=== PATIENT | male | born 1940 | race Caucasian/White ===

== ENCOUNTER 2017-01-13 12:57 | Observation (INO) ==
--- NOTE | 2017-01-13 13:31 | Emergency Department Note ---
Disposition Clinical Impression: Atrial fibrillation with RVR Disposition: Admitted As Inpatient Condition: Good Time of Disposition: 14:36 General Adult HPI - General Chief complaint: ED Chest Pain Stated complaint: "new onset afib" Time Seen by Provider: 01/13/17 13:08 Source: patient, family, EMS Limitations: no limitations Nursing Notes Reviewed: Yes Vital Signs Reviewed: Yes - History of Present Illness HPI Narrative: 76-year-old male presenting to the emergency Department chief complaint new onset A. fib. Patient states last evening he started feeling a fluttering in his chest and decided to go to his primary care physician due to significant cardiac history. Patient states his primary care physician completed an EKG and saw a new onset A. fib with RVR. Patient was sent via EMS to our emergency department. Patient denies any chest pain at this time. He denies any shortness of breath, dizziness, passing out. He states the only thing that is different from his baseline is an odd fluttering in his chest. Patient does have significant cardiac history of seven stent placements with the last one being between 5-10 years ago. He is not on any anticoagulation at this time. Patient states multiple times in the room that he is a DNR/DNI. Patient has history of prostate cancer treated with radiation. Patient states this chest pain does not feel like any of his previous heart attacks. Pain Scale: 0 - Related Data Allergies Allergy/AdvReac Type Severity Reaction Status Date / Time bicalutamide [From Casodex] Allergy See Verified 05/21/15 08:38 Comments lisinopril Allergy See Verified 05/21/15 08:38 Comments promethazine [From Phenergan] AdvReac Hypotension Verified 03/21/15 10:10 All systems ED: reviewed and negative except as stated. Constitutional: Denies: fever, chills, weakness Eyes: Reports: as per HPI ENT ED: Reports: as per HPI Cardiovascular: Reports: chest pain, palpitations. Denies: dyspnea on exertion Respiratory: Denies: cough, dyspnea, wheezes Gastrointestinal: Denies: abdominal pain, nausea, vomiting Genitourinary: Reports: as per HPI Musculoskeletal: Reports: as per HPI Integumentary: Denies: rash, abrasion, lesions Neurological: Denies: weakness, numbness, paresthesias Psychiatric: Reports: as per HPI Endocrine: Reports: as per HPI Hematological/Lymphatic: Reports: as per HPI Allergic/Immunologic: Reports: as per HPI Past Medical History - Past Medical History Attestation: Yes The following information was validated with the patient. Medical history: Reports: cancer, COPD, coronary artery disease, GERD, hyperlipidemia, hypertension Surgical history: Reports: angioplasty/stent, appendectomy, prostatectomy Psychiatric history: Reports: no psych history - Social History Smoking Status: Former smoker Alcohol use: Reports: none Drug use: Reports: none Physical Exam - General Limitations: no limitations General appearance: alert, in no apparent distress - Head Head exam: atraumatic, normocephalic, normal inspection - Eye Eye exam: Present: normal appearance. Absent: scleral icterus, conjunctival injection - Chest Chest inspection: Present: normal inspection, symmetric chest wall rise. Absent : tenderness, rash - Respiratory Respiratory exam: Present: normal lung sounds bilaterally. Absent: respiratory distress, wheezes, stridor - Cardiovascular Cardiovascular exam: Present: tachycardia (Patient is irregularly irregular in A. fib with RVR. Heart rate between 85 and 110 at this time), irregular rhythm , normal heart sounds - Abdominal Exam Abdominal exam: Present: soft, Non-Tender. Absent: distention, guarding, rebound - Rectal Exam Rectal exam: Present: hemorrhoids. Absent: black stool, fecal impaction - Extremities Exam Extremities exam: Present: normal inspection, full ROM - Back Exam Back exam: Present: normal inspection - Neurological Exam Neurological exam: Present: alert, oriented X3 - Psychiatric Psychiatric exam: Present: normal affect, normal mood - Skin Skin exam: Present: warm, intact Course Course Narrative: 76-year-old male presenting to the emergency department with new onset A. fib. Patient is rate controlled at this time. We will obtain basic lab work including troponin, EKG, chest x-ray and a stool occult for blood. As long as all this is within normal limits we will start the patient on anticoagulation and have him admitted for new onset A. fib with RVR. Patient's pain free at this time. His vital signs are stable in the room. He is alert and oriented 3 and agrees with this plan. Family is at bedside. - Reevaluation(s) Reevaluation #1: The patient's labs were normal except for a positive stool culture. Patient did have an external hemorrhoid which I feel did give a false positive result. Patient denied any melena or hematochezia. He denies any history of GI bleeding. We will start him on heparin at this time as per cardiology. I spoke with the hospitalist Dr. Caballero who agrees to accept the patient at this time. Patient's alert and oriented 3 in the room with stable vital signs at this time. Patient and family agrees with this plan. Time: 14:36 Vital Signs Temperature 97.8 F 01/13/17 12:59 Pulse Rate 97 01/13/17 12:59 Respiratory Rate 16 01/13/17 12:59 Blood Pressure 129/102 01/13/17 12:59 O2 Sat by Pulse Oximetry 99 01/13/17 12:59 Temperature 97.9 F 01/13/17 16:41 Pulse Rate 87 01/13/17 16:41 Respiratory Rate 15 01/13/17 16:41 Blood Pressure 109/73 01/13/17 16:41 O2 Sat by Pulse Oximetry 96 01/13/17 16:41 Oxygen Delivery Oxygen Delivery Room Air Medical Decision Making - Lab Data Result diagrams: 01/13/17 13:25 01/13/17 13:25 Lab Results 01/13/17 01/13/17 01/13/17 Range/Units 13:25 13:25 13:25 WBC 7.8 (4.3-11.1) K/mcL RBC 4.67 (4.19-5.50) M/mcL Hgb 14.6 (12.9-16.9) g/dL Hct 44.5 (37.5-50.1) % MCV 95.3 (83.0-100.0) fL MCH 31.3 (28.0-33.3) pg MCHC 32.8 (31.6-35.5) g/dL RDW 13.2 (11.5-14.5) % Plt Count 222 (140-400) K/mcL MPV 8.7 L (9.4-12.4) fL Immature Gran % 0.4 (0-4) % Seg Neutrophils % 61.9 % Lymphocytes % 30.3 % Monocytes % 6.0 % Eosinophils % 0.9 % Basophils % 0.5 % Neutrophils # 4.8 (1.6-8.9) K/mcL Lymphocytes # 2.4 (0.6-4.6) K/mcL Monocytes # 0.5 (0.0-1.3) K/mcL Eosinophils # 0.1 (0.0-0.6) K/mcL Basophils # 0.0 (0.0-0.2) K/mcL PT 12.4 H (9.4-12.1) Seconds INR 1.1 APTT 25.9 L (26.0-36.0) Seconds Sodium 139 (136-145) mEq/L Potassium 4.1 (3.5-4.5) mEq/L Chloride 105 (98-109) mEq/L Carbon Dioxide 30 H (19-29) mEq/L BUN 17 (8-26) mg/dL Creatinine 1.16 (0.72-1.25) mg/dL Est GFR ( Amer) > 60 (> 60) Est GFR (Non-Af Amer) > 60 (> 60) BUN/Creatinine Ratio 15 (6-26) Glucose 104 H (70-99) mg/dL Calculated Osmolality 290 (280-300) Calcium 9.3 (8.6-10.8) mg/dL Troponin I (0-0.03) ng/mL TSH 0.347 L (0.350-4.840) mcIU/mL Stool Occult Blood (Negative) 01/13/17 01/13/17 Range/Units 13:25 14:14 WBC (4.3-11.1) K/mcL RBC (4.19-5.50) M/mcL Hgb (12.9-16.9) g/dL Hct (37.5-50.1) % MCV (83.0-100.0) fL MCH (28.0-33.3) pg MCHC (31.6-35.5) g/dL RDW (11.5-14.5) % Plt Count (140-400) K/mcL MPV (9.4-12.4) fL Immature Gran % (0-4) % Seg Neutrophils % % Lymphocytes % % Monocytes % % Eosinophils % % Basophils % % Neutrophils # (1.6-8.9) K/mcL Lymphocytes # (0.6-4.6) K/mcL Monocytes # (0.0-1.3) K/mcL Eosinophils # (0.0-0.6) K/mcL Basophils # (0.0-0.2) K/mcL PT (9.4-12.1) Seconds INR APTT (26.0-36.0) Seconds Sodium (136-145) mEq/L Potassium (3.5-4.5) mEq/L Chloride (98-109) mEq/L Carbon Dioxide (19-29) mEq/L BUN (8-26) mg/dL Creatinine (0.72-1.25) mg/dL Est GFR ( Amer) (> 60) Est GFR (Non-Af Amer) (> 60) BUN/Creatinine Ratio (6-26) Glucose (70-99) mg/dL Calculated Osmolality (280-300) Calcium (8.6-10.8) mg/dL Troponin I 0.03 (0-0.03) ng/mL TSH (0.350-4.840) mcIU/mL Stool Occult Blood Positive A (Negative) - EKG Data EKG #1 EKG attestation: Yes I reviewed and interpreted this EKG. EKG results narrative: A. fib with RVR. Rate of 100 bpm. Left axis deviation. QRS 94, QTc 389. Nonspecific T-wave changes in V2, V3, V5 V6 when compared to previous EKG completed on 04/04/2011 new-onset A. fib along with new onset of LVH and nonspecific T-wave abnormalities. Attestation Statement - Attestation Attestation: I, Francis Shah, examined this patient and my medical decision-making was reviewed with the [employer] MANAGER/PA/Advanced Practice Nurse/Resident Physician. I agree with the documented findings, disposition and treatment plan as described except to the extent set forth below. 76-year-old male presents emergency Department with concerns of new onset atrial fibrillation. Patient's states that he has had multiple episodes of chest pain over the last 24 hours which improved with nitroglycerin. This feels similar to his previous chest tightness that was associated with his myocardial infarction. Patient has multiple stents in place. Patient main concern is the new onset atrial fibrillation with the risk factors for stroke. He refuses further intervention with his heart . Patient denies recent trauma, syncope, changes in his medications. Patient took 381 mg aspirin yesterday when he had acute onset pain. Patient is currently in nature fibrillation with a rapid ventricular rate although his rate generally only goes to about 1:15. Patient does not currently have chest pain or lightheadedness. Rectal exam performed by the resident shows a external hemorrhoid and the stool had a "red jelly" appearance to it. However, patient denies hematochezia or melena. Patient will be started on heparin as he is not anemic and has not had diarrhea. The hospitalist was informed regarding his case and presentation. Patient will be admitted to the hospital for further evaluation.
[2017-01-13 13:32] LABS: Basophils % 0.5 %; Eosinophils # 0.1 K/mcL (0.0-0.6); Eosinophils % 0.9 %; Hematocrit 44.5 % (37.5-50.1); Hemoglobin 14.6 g/dL (12.9-16.9); Immature Granulocytes % 0.4 % (0-4); Lymphocytes # 2.4 K/mcL (0.6-4.6); Lymphocytes % 30.3 %; Mean Corpuscular HGB Conc 32.8 g/dL (31.6-35.5); Mean Corpuscular Hemoglobin 31.3 pg (28.0-33.3); Mean Corpuscular Volume 95.3 fL (83.0-100.0); Mean Platelet Volume 8.7 fL (9.4-12.4); Monocytes # 0.5 K/mcL (0.0-1.3); Neutrophils # 4.8 K/mcL (1.6-8.9); Platelet Count 222 K/mcL (140-400); Red Blood Count 4.67 M/mcL (4.19-5.50); Red Cell Distribution Width 13.2 % (11.5-14.5); Segmented Neutrophils % 61.9 %
[2017-01-13 13:38] LABS: INR 1.1; Prothrombin Time 12.4 Seconds (9.4-12.1)
[2017-01-13 13:41] LABS: Activated Partial Thrombo Time 25.9 Seconds (26.0-36.0)
[2017-01-13 13:44] LABS: BUN/Creatinine Ratio 15 (6-26); Blood Urea Nitrogen 17 mg/dL (8-26); Calcium 9.3 mg/dL (8.6-10.8); Carbon Dioxide 30 mEq/L (19-29); Chloride 105 mEq/L (98-109); Glucose 104 mg/dL (70-99); Osmolality,Calculated 290 (280-300); Potassium 4.1 mEq/L (3.5-4.5); Sodium 139 mEq/L (136-145); eGFR For African Americans > 60 (> 60); eGFR For Non-African Americans > 60 (> 60)
[2017-01-13 14:06] LABS: Thyroid Stimulating Hormone 0.347 mcIU/mL (0.350-4.840)
[2017-01-13] MEDS ORDERED: *HR* Heparin 5,000 UNIT/ML VIAL IVP ONE (14:30)
[2017-01-13] MEDS ORDERED: *HR* Heparin 5,000 UNIT/ML VIAL IVP PRN ×2 (14:30)
[2017-01-13] MEDS: Heparin 25,000 UNIT/500 ML D5W 25,000 UNIT/500 ML MLS IVC SCH (15:59)
[2017-01-13] MEDS ORDERED: Naloxone 0.4 MG/ML INJ IVP PRN (16:18)
[2017-01-13] MEDS ORDERED: Nitroglycerin 0.4 MG TAB.SUBL SL SCH (16:30)
--- NOTE | 2017-01-13 17:00 | Internal Med History&Physical ---
Date of Encounter: 01/13/17 Time of Encounter: 16:58 Assessment and Plan (1) Atrial fibrillation with RVR Current visit: Yes Status: Acute New onset of A-fib, currently rate controlled while resting. He reports tacycardia with activity, also accompanied with CP and dyspnea. H/O extensive CAD requiring 7 stents serial troponins echocardiogram consult cardio- days team to call continuous tele CBC, CMP in morning (2) Chest pain Current visit: Yes Status: Acute Intermittent exertional CP/tightness. Extensive cardiac history, requiring 7 stents. Continues to endorse CP with activity at this time, initial trop 0.03 Serial troponins continuous tele and SPO2 monitoring Qualifiers: Chest pain type: unspecified Qualified Code(s): R07.9 - Chest pain, unspecified (3) HTN (hypertension) Current visit: Yes Status: Acute H/O, HTN, BP controlled during this visit, continue Imdur at home dose Qualifiers: Hypertension type: essential hypertension Qualified Code(s): I10 - Essential (primary) hypertension (4) DVT prophylaxis Current visit: Yes Status: Acute On heparin gtt, start SC prophylaxis when heparin gtt discontinued. Internal Medicine - H&P: HPI Chief complaint: New A-fib Admitted From: Home Plans for Post Hospital Care: Home History of present illness: Mr. Roth is a 76 year old male with a PMH of CA, COPD, CAD, 7 coronary stents , GERD, HLD, and HTN. Presents to [facility] today with chest discomfort and was found to be in A. fib. He reports that yesterday he began feeling a fluttering in his chest, dyspnea and left sided chest discomfort which worsened with activity, and subsided with rest. These symptoms continue with activity. Denies any SOB, dizziness, syncope, fevers, or chills. He is not on any anticoagulation. Troponin -0.03. He is currently rate controlled and hemodynamically stable. Being admitted further workup and evaluation. Past Med Surg Social Fam HX - Past Medical History Medical history: cancer, COPD, coronary artery disease, GERD, hyperlipidemia, hypertension Psychiatric history: no psych history - Past Surgical History Surgical History: angioplasty/stent, appendectomy, prostatectomy - Social History Smoking Status: Former smoker Alcohol use: none Drug use: none - Additional Family History Additional family history: non-contributory Internal Medicine - H&P: Meds Ipratropium [place] 1 spr NS DAILY 01/13/17 [History] Isosorbide MONOnitrate (24 HR) [Imdur] 30 mg PO DAILY 01/13/17 [History] Nitroglycerin [Nitrostat] 0.4 mg SL Q5M 01/13/17 [History] Pantoprazole Sodium [Protonix] 40 mg PO DAILY 01/13/17 [History] 3 Allergy/AdvReac Type Severity Reaction Status Date / Time bicalutamide [From Casodex] Allergy See Verified 05/21/15 08:38 Comments lisinopril Allergy See Verified 05/21/15 08:38 Comments promethazine [From Phenergan] AdvReac Hypotension Verified 03/21/15 10:10 All Systems PM: A 10-system review of systems was performed and is negative for pertinent findings except as documented above in the HPI. - Constitutional Constitutional: fatigue, no chills, no fever(s), no night sweats, no weakness, no weight gain, no weight loss - EENT Eyes: no change in vision, no discharge, no pain, no photophobia Ears: no ear discharge, no ear pain, no tinnitus Nose, mouth and throat: no dysphagia, no nasal discharge, no neck pain, no sore throat - Cardiovascular Cardiovascular ROS IM: chest pain, dyspnea on exertion, irregular heart rhythm, palpitations, no diaphoresis, no dyspnea, no edema, no lightheadedness, no syncope - Respiratory Respiratory: dyspnea on exertion, no cough, no dyspnea, no wheezing, no excessive phlegm production - Gastrointestinal Gastrointestinal: no abdominal pain, no diarrhea, no hematemesis, no hematochezia, no melena, no nausea, no vomiting - Musculoskeletal Musculoskeletal ROS IM: no numbness, no tingling - Integumentary Integumentary IM: no rash, no unusual bruising - Neurological Neurological ROS: no confusion, no convulsions, no focal weakness, no numbness, no tingling, no tremor(s) - Hematologic/Lymphatic Hematologic/Lymphatic: no easy bruising - Constitutional Vitals: Temp Pulse Resp BP Pulse Ox 97.9 F 87 15 109/73 96 01/13/17 16:41 01/13/17 16:41 01/13/17 16:41 01/13/17 16:41 01/13/17 16:41 General appearance: Present: cooperative, A&O X 3, no acute distress, answers questions appropriately - Head Head exam: Present: atraumatic, normocephalic - Eye Eye exam: Present: EOMI, PERRL, conjuntiva pink, sclera anicteric Pupils: Present: PERRL - Neck Neck exam general surgery: Present: supple, trachea midline. Absent: lymphadenopathy - Respiratory Respiratory exam: Present: CTAB. Absent: accessory muscle use, rales, rhonchi, wheezes - Cardiovascular Cardiovascular exam: Present: irregular rhythm, RRR, +S1, +S2. Absent: diastolic murmur, gallop, rubs, systolic murmur - GI/Abdominal GI/Abdominal exam: Present: normal bowel sounds, soft, no peritoneal signs. Absent: distended, tenderness - Extremities Exam Extremities exam: Present: warm, radial pulses palpable and symmetrical. Absent : calf tenderness, cyanotic, pedal edema - Neurological Exam Neurological exam: Present: CN II-XII intact, oriented X3, no focal deficits. Absent: pronater drift, facial droop, speech deficit - Skin Skin exam: Present: dry, intact Internal Med - H&P Results - Labs CBC & Chem 7: 01/13/17 13:25 01/13/17 13:25 - EKG Data -: EKG Interpreted by Myself - EKG Data EKG comments: 01/13/17 17:02 a-fib 01/13/17 17:03 - Diagnostic Studies Chest x-ray Status: image reviewed by me Additional comments: no acute pulmonary process
[2017-01-13 21:17] LABS: Activated Partial Thrombo Time 121.2 Seconds (26.0-36.0)
[2017-01-13 21:41] LABS: Heparin anti-factor XA UFH 0.74 IU/mL (0.30-0.70)
[2017-01-14 05:15] LABS: Basophils # 0.1 K/mcL (0.0-0.2); Basophils % 0.9 %; Eosinophils # 0.1 K/mcL (0.0-0.6); Eosinophils % 1.9 %; Hemoglobin 14.2 g/dL (12.9-16.9); Immature Granulocytes % 0.4 % (0-4); Lymphocytes # 2.4 K/mcL (0.6-4.6); Lymphocytes % 41.4 %; Mean Corpuscular Hemoglobin 31.1 pg (28.0-33.3); Mean Corpuscular Volume 94.3 fL (83.0-100.0); Mean Platelet Volume 9.2 fL (9.4-12.4); Monocytes # 0.4 K/mcL (0.0-1.3); Monocytes % 7.4 %; Neutrophils # 2.7 K/mcL (1.6-8.9); Platelet Count 192 K/mcL (140-400); Red Blood Count 4.56 M/mcL (4.19-5.50); Red Cell Distribution Width 13.4 % (11.5-14.5)
[2017-01-14 05:34] LABS: Alanine Aminotransferase 16 Units/L (0-55); Albumin/Globulin Ratio 1.2 (1.1-2.2); Alkaline Phosphatase 58 Units/L (38-126); Aspartate Amino Transferase 20 Units/L (5-34); BUN/Creatinine Ratio 15 (6-26); Bilirubin,Total 0.5 mg/dL (0.2-1.2); Blood Urea Nitrogen 14 mg/dL (8-26); Calcium 9.1 mg/dL (8.6-10.8); Carbon Dioxide 26 mEq/L (19-29); Chloride 109 mEq/L (98-109); Globulin 2.6 g/dL (2.4-3.5); Glucose 96 mg/dL (70-99); Osmolality,Calculated 292 (280-300); Potassium 3.8 mEq/L (3.5-4.5); Sodium 141 mEq/L (136-145); Total Protein 5.6 g/dL (6.0-8.3); eGFR For African Americans > 60 (> 60); eGFR For Non-African Americans > 60 (> 60)
[2017-01-14] MEDS ORDERED: Isosorbide MONOnitrate (24 HR) 30 MG TAB.ER.24H PO SCH (09:00)
[2017-01-14] MEDS ORDERED: (Ipratropium Bromide [Ipratropium Bromide] 1 SPR) NS SCH (09:00)
--- NOTE | 2017-01-14 09:14 | Cardiology Consult Note ---
Date of Encounter: 01/14/17 Time of Encounter: 09:04 Assessment and Plan (1) Atrial fibrillation with RVR Current Visit: Yes Status: Acute New A-Fib, EKG on admission HR 100. HR currently 90s-low 100s at bedside. K 3.8, Mag 2.3, TSH 0.347--recommend addressing per primary team. Recommend starting Lopressor 25mg BID. Will start now. [id number] score is 4 (Age, HTN, CAD). Currently on heparin gtt. Discussed snf anticoagulation--Coumadin vs NOACs. Pt refuses Coumadin, states he will need to think about NOACs before agreeing. R/B/A discussed. Stool occult blood positive. H&H stable. Per pt, since having radiation for prostate cancer in the , he has had to take an enema every other day which sometimes causes some irritation/blood to be noted and has hx of hemorrhoids. Will discuss with Dr. Perez, but does not seem to be contraindication for anticoagulation. Check echo to evaluate structure and function. Sleep study 10/2015 no evidence of QUIANA. (2) Chest pain Current Visit: Yes Status: Acute Chest pain intermittent since Thursday morning. Midsternal chest tightness with radiation to back. Concerning for unstable angina. Symptoms worse with exertion, improve with rest and nitro. Troponins 0.03, 0.06x2 in setting of A-Fib RVR, nondiagnostic for ACS. EKG with lateral ischemia. Per pt, symptoms similar to prior anginal equivalent. Also per pt, he thought he had an FL earlier this year, went to PCP office and EKG was noted to have changes, but he declined admission. Echo to evaluate structure and function. Recommend ischemic evaluation given concerning symptoms and EKG changes. Discussed stress test/LHC. Pt would like to think about his options, but would prefer stress test is able. Pt is DNR-CC and he refuses to revoke his code status if LHC were to be recommended. Will await echo results/EF to determine if stress test or LHC is recommended. Qualifiers: Chest pain type: unspecified Qualified Code(s): R07.9 - Chest pain, unspecified (3) CAD (coronary artery disease) Current Visit: Yes Status: Acute Hx of CAD and multiple PCI (per pt 7). Last LHC was 02/2012 when pt received PCI to prox-mid first obtuse marginal artery. Start ASA, Statin, BB. Plan as above. Qualifiers: Coronary Disease-Associated Artery/Lesion type: [place] artery [place] vs. transplanted heart: [place] heart Associated angina: with unstable angina Qualified Code(s): I25.110 - Atherosclerotic heart disease of [place] coronary artery with unstable angina pectoris (4) Elevated troponin Current Visit: Yes Status: Acute Borderline--0.03, then 0.06 x 2 in setting of A-Fib with RVR. Nondiagnostic for ACS. Cardiac rehab currently not warranted. Plan as above. Discussion w patient/family: The assessment and plan as outlined above was discussed with the patient and/or family members who expressed understanding and agreement. All questions were answered. Thank you for involving us in the care of your patient. Please call with any questions. I will discuss all the above with Dr. Perez and make changes as necessary. History of Present Illness Consult date: 01/14/17 Requesting physician: Saleem Chery Consult reason: A-Fib, chest pain, elevated troponin Chief complaint: chest pain History of present illness: Mr. Roth is a 76 year old male with a PMH of prostate CA s/p radiation, COPD, CAD s/p PCI, GERD, HLD, and HTN. Pt presented to [facility] yesterday with chest discomfort described as midsternal chest tightness radiating to his back. He woke up with the pain at 6AM on Thursday. The pain was worse with exertion, improved with nitro. He took multiple nitro, ASA and Imdur. The pain recurred on Thursday, prompting evaluation by his PCP, who found he was in A-Fib with RVR and was transported to [facility] He reports symptoms were similar to prior anginal equivalent. He reports dyspnea on exertion. No prior hx of A-Fib. Troponins 0.03 , 0.06, 0.06. Cardiology consulted for further recommendations. Prior CV testing: [facility] 03/07/11: Severe 2 vessel CAD. Patent pre-existing stent and 50% stenosis in proximal to mid LAD. Patent pre-existing stent in the mid to distal LAD. Ostial 50 to 60% stenosis in the proximal first diagonal artery. 90 to 95% ISR of pre-existing stent in prox-mid second obtuse marginal artery. EF 55-60%. Staged PCI recommended. [facility] 03/07/11: Successful stenting of 90% stenosis in prox-mid first obtuse marginal artery. Past Med Surg Social Fam HX - Past Medical History Medical history: cancer, COPD, coronary artery disease, GERD, hyperlipidemia, hypertension Psychiatric history: no psych history - Past Surgical History Surgical History: angioplasty/stent, appendectomy, prostatectomy - Social History Smoking Status: Former smoker Alcohol use: none Drug use: none Medications and Allergies Ipratropium [place] 1 spr NS DAILY 01/13/17 [History] Isosorbide MONOnitrate (24 HR) [Imdur] 30 mg PO DAILY 01/13/17 [History] Nitroglycerin [Nitrostat] 0.4 mg SL Q5M 01/13/17 [History] Pantoprazole Sodium [Protonix] 40 mg PO DAILY 01/13/17 [History] 3 Allergy/AdvReac Type Severity Reaction Status Date / Time bicalutamide [From Casodex] Allergy See Verified 05/21/15 08:38 Comments lisinopril Allergy See Verified 05/21/15 08:38 Comments promethazine [From Phenergan] AdvReac Hypotension Verified 03/21/15 10:10 All Systems Review: A 10-system review of systems was performed and is negative for pertinent findings except as documented above in the HPI. - Cardiovascular Cardiovascular: as per HPI, chest pain at rest, chest pain with exertion, dyspnea on exertion, radiating jaw, neck or arm pain - Respiratory Respiratory: dyspnea Physical Examination Vital Signs, Last 4 Hours Temp Pulse Resp BP Pulse Ox 01/14/17 07:43 97.8 F 91 16 115/86 98 Vital Signs Temp Pulse Resp BP Pulse Ox 01/14/17 07:43 97.8 F 91 16 115/86 98 01/14/17 04:24 97.9 F 72 20 121/72 97 01/14/17 00:35 97.6 F 81 20 101/62 92 01/13/17 16:41 97.9 F 87 15 109/73 96 01/13/17 16:19 98.4 F 104 20 127/84 98 01/13/17 16:00 16 129/84 01/13/17 14:30 114 16 178/94 95 01/13/17 12:59 97.8 F 97 16 129/102 99 Intake and Output 01/13/17 01/14/17 01/14/17 23:59 07:59 15:59 Intake Total 365 / 365 120 / 120 360 / 360 Output Total 0 / 0 Balance 365 / 365 120 / 120 360 / 360 Intake: IV Fluids 125 / 125 Heparin 25,000 UNIT/500 ML D5W 125 / 125 25,000 unit In 500 ml @ 14 UNIT /KG/HR 23.496 mls/hr IVC . [id number] [facility] Rx#:[id number] Oral 240 / 240 120 / 120 360 / 360 Output: Urine 0 / 0 Other: Meal Breakfast Percent of Meal Consumed 100% # Voids 1 1 Weight 88.7 kg 88.7 kg Blood Glucose* 127 Patient Weight 01/14/17 23:59 Weight 88.7 kg General: Conversant, No Apparent Distress HEENT: Atraumatic, Normocephaly, Mucus Membranes Moist Neck: No JVD, Normal carotid pulses Cardiac: Other (irregularly irregular) Lungs: Normal Breath Sounds, No Wheeze, Rales, Rhonchi Neuro: Alert and responsive, No focal deficits noted Abdomen: Soft, Non-Tender Skin: No rashes noted on visualized skin Musculoskeletal: No Chest Wall Tenderness Extremities: No Clubbing, No Cyanosis, No Edema, Normal Pulses Results 01/14/17 04:12 01/14/17 04:12 Lab Results 01/13/17 01/13/17 01/13/17 17:04 20:36 20:36 WBC Hgb Hct Plt Count APTT 121.2 H* D Sodium Potassium Chloride Carbon Dioxide BUN Creatinine Glucose Calcium Magnesium 2.3 Total Bilirubin AST ALT Alkaline Phosphatase Troponin I 0.06 H* 01/14/17 01/14/17 01/14/17 00:42 04:12 04:12 WBC 5.7 Hgb 14.2 Hct 43.0 Plt Count 192 APTT Sodium 141 Potassium 3.8 Chloride 109 Carbon Dioxide 26 BUN 14 Creatinine 0.95 Glucose 96 Calcium 9.1 Magnesium Total Bilirubin 0.5 AST 20 ALT 16 Alkaline Phosphatase 58 Troponin I 0.06 H* 01/14/17 04:12 WBC Hgb Hct Plt Count APTT 69.3 H Sodium Potassium Chloride Carbon Dioxide BUN Creatinine Glucose Calcium Magnesium Total Bilirubin AST ALT Alkaline Phosphatase Troponin I Short CBC 01/14/17 01/13/17 Range/Units 04:12 13:25 WBC 5.7 7.8 (4.3-11.1) K/mcL Hgb 14.2 14.6 (12.9-16.9) g/dL Hct 43.0 44.5 (37.5-50.1) % Plt Count 192 222 (140-400) K/mcL Neutrophils # 2.7 4.8 (1.6-8.9) K/mcL BMP 01/14/17 01/13/17 Range/Units 04:12 13:25 Sodium 141 139 (136-145) mEq/L Potassium 3.8 4.1 (3.5-4.5) mEq/L Chloride 109 105 (98-109) mEq/L Carbon Dioxide 26 30 H (19-29) mEq/L BUN 14 17 (8-26) mg/dL Creatinine 0.95 1.16 (0.72-1.25) mg/dL Glucose 96 104 H (70-99) mg/dL Calcium 9.1 9.3 (8.6-10.8) mg/dL Cardiac Enzymes 01/14/17 01/13/17 01/13/17 Range/Units 00:42 20:36 13:25 Troponin I 0.06 H* 0.06 H* 0.03 (0-0.03) ng/mL Liver Function 01/14/17 Range/Units 04:12 Total Bilirubin 0.5 (0.2-1.2) mg/dL AST 20 (5-34) Units/L ALT 16 (0-55) Units/L Alkaline Phosphatase 58 (38-126) Units/L Albumin 3.0 L (3.5-5.0) g/dL Impressions Chest X-Ray 01/13/17 13:12 IMPRESSION: No acute process. D/ / Clifford Eaton MD / Clifford Eaton MD Interpreting Provider: Clifford Eaton MD Active Medications Heparin Sodium (Porcine) (Heparin) 5,900 unit 70 unit/kg (5900 unit) IVP Q6HR PRN PRN Reason: SEE COMMENTS Stop: 07/15/17 14:31 Heparin Sodium (Porcine) (Heparin) 2,900 unit 35 unit/kg (2900 unit) IVP Q6H PRN PRN Reason: SEE COMMENTS Stop: 07/15/17 14:31 Heparin Sodium/Dextrose (Heparin 25,000 Unit/500 Ml D5w) 25,000 unit in 500 mls @ 23.496 mls/hr IVC .[id number] [place]; 14 UNIT/KG/HR PRN Reason: Protocol Stop: 07/15/17 14:31 Last Titration: 01/13/17 21:17 Dose: 10.96 unit/kg/hr, 18.4 mls/hr Isosorbide Mononitrate (Imdur) 30 mg PO DAILY [facility] Stop: 07/16/17 09:01 Last Admin: 01/14/17 09:05 Dose: 30 mg Naloxone HCl (Narcan) 0.4 mg IVP Q2MIN PRN PRN Reason: Opioid Reversal Stop: 07/15/17 16:19 Nitroglycerin (Nitroglycerin) 0.4 mg SL Q5M [facility] Stop: 07/15/17 16:31 Omeprazole (Prilosec) 20 mg PO DAILY [facility] Stop: 07/16/17 09:01 Pharmacy Profile Note (Patient Taking Own Medication) 1 each NS DAILY [facility] Stop: 07/16/17 09:01 - Imaging and Cardiology Chest Xray: report reviewed Cardiac cath: report reviewed - EKG Interpretation EKG results cardiology: personally reviewed (A-Fib rate 100, lateral ischemia), other (12 hr tele AVG HR 85, A-Fib) Consult Discharge Plan - Plan Referrals: Christiano Shah DO [Primary Care Provider] - 01/22/17 11:30 am
[2017-01-14] MEDS ORDERED: Aspirin 81 MG TAB.CHEW PO SCH (09:30)
[2017-01-14] MEDS ORDERED: Pantoprazole 40 MG VIAL IVP SCH (09:30)
[2017-01-14] MEDS ORDERED: Nitroglycerin 0.4 MG TAB.SUBL SL PRN (09:37)
[2017-01-14 10:51] LABS: Triiodothyronine (T3) Free 2.5 pg/mL (1.71-3.71)
--- NOTE | 2017-01-14 10:55 | Internal Med Progress Note ---
<Fabio Barnard - Last Filed: 01/14/17 11:22> Date of Encounter: 01/14/17 Time of Encounter: 10:15 - Assessment and plan (1) Atrial fibrillation with RVR Current Visit: Yes Status: Acute Assessment and plan: New onset atrial fibrillation with RVR. Rate is currently controlled with metoprolol. Reported tachycardia with activity. Patient did have exertional chest pain and dyspnea prior to admission to the hospital. He does have extensive history of CAD recurrent 2010. No known follow-up of heart disease since then. EKG was suggestive of lateral ischemia and series of 3 troponins showed mildly elevated, but stable troponins. Cardiology has been consulted to assist in management of atrial fibrillation with possibility of left heart cath Patient has CHADVASc of 3-4 will likely need long-term anticoagulation Echocardiogram pending Continue on telemetry (2) CAD (coronary artery disease) Current Visit: Yes Status: Acute Assessment and plan: Patient has extensive history of coronary artery disease having had 7 stents placed in 2010 which was the time of his last left heart catheterization. Patient does report having some increased exertional chest pain and dyspnea prior to presentation to the hospital. Patient is continued on heparin drip due to new onset atrial fibrillation Continue home Imdur Continue sublingual nitroglycerin as needed for chest discomfort Continue metoprolol Continue aspirin Qualifiers: Coronary Disease-Associated Artery/Lesion type: [place] artery [place] vs. transplanted heart: [place] heart Associated angina: with unstable angina Qualified Code(s): I25.110 - Atherosclerotic heart disease of [place] coronary artery with unstable angina pectoris (3) Elevated troponin Current Visit: Yes Status: Acute Assessment and plan: Mildly elevated troponin seen at 0.03, 0.06, and 0.06 after that. Elevation troponins could be due to A. fib with RVR or represent cardiac ischemia given patient's extensive history of CAD with 7 stents. (4) Low TSH level Current Visit: Yes Status: Acute Assessment and plan: Patient found to have low TSH of 0.347. Hyperthyroidism could potentially contribute to atrial fibrillation, though could be due to sick euthyroid. Will obtain free T3 and T4 (5) HTN (hypertension) Current Visit: Yes Status: Acute Assessment and plan: Patient has history of hypertension was previously on lisinopril. For the most part blood pressures have been controlled while here, there is 1 recording of 178/94, this is possibly an aberrant reading. We will continue to monitor closely Qualifiers: Hypertension type: essential hypertension Qualified Code(s): I10 - Essential (primary) hypertension - Subjective Interval history: Patient reports feeling somewhat improved today. He states he is able to walk about 20-30 feet before having some return of symptoms, but reports this is an improvement from previous. Patient denies having other problems/complaints today. - Constitutional Vitals: Temp Pulse Resp BP Pulse Ox 97.8 F 91 16 115/86 98 01/14/17 07:43 01/14/17 07:43 01/14/17 07:43 01/14/17 07:43 01/14/17 07:43 General appearance: Present: cooperative, A&O X 3, no acute distress, answers questions appropriately Exam: General: Cooperative, pleasant, no acute distress, alert and oriented 3, answers questions appropriately HEENT: Normocephalic, atraumatic, neck supple, trachea midline, Conjunctiva pink , sclera anicteric, no carotid bruits heard on auscultation Respiratory: No accessory muscle usage, clear to auscultation bilaterally, no wheezes/rhonchi/rales appreciated Cardiovascular: Irregularly irregular rhythm, S1 and S2 present, no murmurs/rubs /gallops/clicks appreciated GI/abdominal: Nondistended, nontender, soft, normal bowel sounds, no peritoneal signs Extremities: No calf tenderness, no pedal edema appreciated, warm, lower extremity pulses palpable and symmetrical Neurological: Alert and oriented 3, no facial droop, no focal deficits Internal Medicine: Result - Labs CBC & Chem 7: 01/14/17 04:12 01/14/17 04:12 Labs: Short CBC 01/14/17 Range/Units 04:12 WBC 5.7 (4.3-11.1) K/mcL Hgb 14.2 (12.9-16.9) g/dL Hct 43.0 (37.5-50.1) % Plt Count 192 (140-400) K/mcL Neutrophils # 2.7 (1.6-8.9) K/mcL BMP 01/14/17 04:12 Sodium 141 Potassium 3.8 Chloride 109 Carbon Dioxide 26 BUN 14 Creatinine 0.95 Glucose 96 Calcium 9.1 Cardiac Enzymes 01/13/17 01/14/17 Range/Units 20:36 00:42 Troponin I 0.06 H* 0.06 H* (0-0.03) ng/mL Liver Function 01/14/17 Range/Units 04:12 Total Bilirubin 0.5 (0.2-1.2) mg/dL AST 20 (5-34) Units/L ALT 16 (0-55) Units/L Alkaline Phosphatase 58 (38-126) Units/L Albumin 3.0 L (3.5-5.0) g/dL - ABG Interpretation ABG results: PT/INR, D-dimer PT 12.4 Seconds (9.4-12.1) H 01/13/17 13:25 Consult Discharge Plan - Plan Referrals: Christiano Shah DO [Primary Care Provider] - 01/22/17 11:30 am <Moy Tinsley - Last Filed: 01/14/17 18:34> Date of Encounter: 01/14/17 - Assessment and plan (1) Atrial fibrillation Current Visit: Yes Status: Acute Qualifiers: Atrial fibrillation type: persistent Qualified Code(s): I48.1 - Persistent atrial fibrillation (2) CAD (coronary artery disease) Current Visit: Yes Status: Acute Qualifiers: Coronary Disease-Associated Artery/Lesion type: [place] artery [place] vs. transplanted heart: [place] heart Associated angina: with unstable angina Qualified Code(s): I25.110 - Atherosclerotic heart disease of [place] coronary artery with unstable angina pectoris (3) HTN (hypertension) Current Visit: Yes Status: Acute Qualifiers: Hypertension type: essential hypertension Qualified Code(s): I10 - Essential (primary) hypertension (4) Euthyroid sick syndrome Current Visit: Yes Status: Chronic - Constitutional Vitals: Temp Pulse Resp BP Pulse Ox 98.1 F 51 16 97/62 98 01/14/17 15:49 01/14/17 15:49 01/14/17 15:49 01/14/17 15:49 01/14/17 15:49 Internal Medicine: Result - Labs CBC & Chem 7: 01/14/17 04:12 01/14/17 04:12 Labs: Short CBC 01/14/17 Range/Units 04:12 WBC 5.7 (4.3-11.1) K/mcL Hgb 14.2 (12.9-16.9) g/dL Hct 43.0 (37.5-50.1) % Plt Count 192 (140-400) K/mcL Neutrophils # 2.7 (1.6-8.9) K/mcL BMP 01/14/17 04:12 Sodium 141 Potassium 3.8 Chloride 109 Carbon Dioxide 26 BUN 14 Creatinine 0.95 Glucose 96 Calcium 9.1 Cardiac Enzymes 01/13/17 01/14/17 Range/Units 20:36 00:42 Troponin I 0.06 H* 0.06 H* (0-0.03) ng/mL Liver Function 01/14/17 Range/Units 04:12 Total Bilirubin 0.5 (0.2-1.2) mg/dL AST 20 (5-34) Units/L ALT 16 (0-55) Units/L Alkaline Phosphatase 58 (38-126) Units/L Albumin 3.0 L (3.5-5.0) g/dL - ABG Interpretation ABG results: PT/INR, D-dimer PT 12.4 Seconds (9.4-12.1) H 01/13/17 13:25 - Attending Attestation I examined this patient and my medical decision-making was reviewed with the Resident Physician on 01/14/17. I agree with the documented findings, disposition and treatment plan as described except to the extent set forth below. Mr. Roth is currently admitted for acute rapid a fib with hx of CAD. He remains moderate to high risk due to potential for worsening cardiac status. Mr Roth feels OK. No CP or SOB. No fever or chills. Still in a fib. Appreciate cardiology input. Exam Alert. Comfortable Heart irreg Lungs clear Abd soft I/P 1. A fib 2. CAD Further diagnoses and plan as above.
[2017-01-14] MEDS: Heparin 25,000 UNIT/500 ML D5W 25,000 UNIT/500 ML MLS IVC SCH (23:01)
[2017-01-15 05:13] LABS: BUN/Creatinine Ratio 21 (6-26); Blood Urea Nitrogen 21 mg/dL (8-26); Calcium 8.9 mg/dL (8.6-10.8); Carbon Dioxide 26 mEq/L (19-29); Chloride 108 mEq/L (98-109); Glucose 105 mg/dL (70-99); Magnesium 1.9 mg/dL (1.6-2.6); Osmolality,Calculated 293 (280-300); Potassium 3.9 mEq/L (3.5-4.5); Sodium 140 mEq/L (136-145); eGFR For African Americans > 60 (> 60); eGFR For Non-African Americans > 60 (> 60)
[2017-01-15 05:30] VITALS: BP 105/55
--- NOTE | 2017-01-15 08:12 | Internal Med Progress Note ---
<Fabio Barnard - Last Filed: 01/15/17 08:50> Date of Encounter: 01/15/17 Time of Encounter: 07:50 - Assessment and plan (1) Atrial fibrillation with RVR Current Visit: Yes Status: Acute Assessment and plan: New onset atrial fibrillation with RVR. Previously rate controlled with metoprolol. Reported tachycardia with activity prior to admission. Patient did have exertional chest pain and dyspnea prior to admission to the hospital. He does have extensive history of CAD recurrent 2010. No known follow -up of heart disease since then. EKG was suggestive of lateral ischemia and series of 3 troponins showed mildly elevated, but stable troponins. Over the course of the evening patient converted to sinus bradycardia with rate around 50-55. He reports he is doing well today but has not exerted himself much to cause chest pain or dyspnea. Cardiology is following patient and plan for stress test with echo results today Possible left heart catheterization Patient has CHADVASc of 3-4 will likely need long-term anticoagulation Echocardiogram pending Continue on telemetry (2) CAD (coronary artery disease) Current Visit: Yes Status: Acute Assessment and plan: Patient has extensive history of coronary artery disease having had 7 stents placed in 2010 which was the time of his last left heart catheterization. Patient does report having some increased exertional chest pain and dyspnea prior to presentation to the hospital. Patient is continued on heparin drip due to new onset atrial fibrillation Continue home Imdur Continue sublingual nitroglycerin as needed for chest discomfort Stop metoprolol due to patient's bradycardia Continue aspirin Qualifiers: Coronary Disease-Associated Artery/Lesion type: [place] artery [place] vs. transplanted heart: [place] heart Associated angina: with unstable angina Qualified Code(s): I25.110 - Atherosclerotic heart disease of [place] coronary artery with unstable angina pectoris (3) Elevated troponin Current Visit: Yes Status: Acute Assessment and plan: Mildly elevated troponin seen at 0.03, 0.06, and 0.06 after that. Elevation troponins could be due to A. fib with RVR or represent cardiac ischemia given patient's extensive history of CAD with 7 stents. (4) Low TSH level Current Visit: Yes Status: Acute Assessment and plan: Patient found to have low TSH of 0.347. Free T3 and T4 were normal, low TSH level likely due to sick euthyroid syndrome (5) HTN (hypertension) Current Visit: Yes Status: Acute Assessment and plan: Patient has history of hypertension was previously on lisinopril. For the most part blood pressures have been controlled while here, there is 1 recording of 178/94, this is possibly an aberrant reading. We will continue to monitor closely Qualifiers: Hypertension type: essential hypertension Qualified Code(s): I10 - Essential (primary) hypertension - Subjective Interval history: Patient reports feeling well this morning with nor concerns/complaints. He reports that over the course of the evening he felt his pulse returned to a regular rhythm. He has not had the opportunity to walk and cannot report a continuation of the symptoms that were occurring. Patient is currently nothing by mouth and wondering what the plan was and asking to speak with the unbundler. - Constitutional Vitals: Temp Pulse Resp BP Pulse Ox 97.6 F 56 16 105/55 98 01/15/17 07:43 01/15/17 07:43 01/15/17 07:43 01/15/17 07:43 01/15/17 07:43 General appearance: Present: cooperative, A&O X 3, no acute distress, answers questions appropriately Exam: General: Cooperative, pleasant, no acute distress, alert and oriented 3, answers questions appropriately HEENT: Normocephalic, atraumatic, Conjunctiva pink, sclera anicteric Respiratory: No accessory muscle usage, clear to auscultation bilaterally, no wheezes/rhonchi/rales appreciated Cardiovascular: Bradycardia, S1 and S2 present, no murmurs/rubs/gallops/clicks appreciated Extremities: No calf tenderness, no pedal edema appreciated, warm, lower extremity pulses palpable and symmetrical Neurological: Alert and oriented 3, no facial droop, no focal deficits Internal Medicine: Result - Labs CBC & Chem 7: 01/14/17 04:12 01/15/17 03:49 Labs: BMP 01/15/17 03:49 Sodium 140 Potassium 3.9 Chloride 108 Carbon Dioxide 26 BUN 21 Creatinine 0.99 Glucose 105 H Calcium 8.9 - ABG Interpretation ABG results: PT/INR, D-dimer PT 12.4 Seconds (9.4-12.1) H 01/13/17 13:25 Consult Discharge Plan - Plan Referrals: Christiano Shah DO [Primary Care Provider] - 01/22/17 11:30 am <Moy Tinsley - Last Filed: 01/15/17 13:54> Date of Encounter: 01/15/17 - Assessment and plan (1) Atrial fibrillation Current Visit: Yes Status: Acute Qualifiers: Atrial fibrillation type: persistent Qualified Code(s): I48.1 - Persistent atrial fibrillation (2) CAD (coronary artery disease) Current Visit: Yes Status: Acute Qualifiers: Coronary Disease-Associated Artery/Lesion type: [place] artery [place] vs. transplanted heart: [place] heart Associated angina: with unstable angina Qualified Code(s): I25.110 - Atherosclerotic heart disease of [place] coronary artery with unstable angina pectoris (3) HTN (hypertension) Current Visit: Yes Status: Acute Qualifiers: Hypertension type: essential hypertension Qualified Code(s): I10 - Essential (primary) hypertension (4) Euthyroid sick syndrome Current Visit: Yes Status: Chronic - Constitutional Vitals: Temp Pulse Resp BP Pulse Ox 97.6 F 56 16 105/55 98 01/15/17 07:43 01/15/17 07:43 01/15/17 07:43 01/15/17 07:43 01/15/17 07:43 Internal Medicine: Result - Labs CBC & Chem 7: 01/14/17 04:12 01/15/17 03:49 Labs: BMP 01/15/17 03:49 Sodium 140 Potassium 3.9 Chloride 108 Carbon Dioxide 26 BUN 21 Creatinine 0.99 Glucose 105 H Calcium 8.9 - ABG Interpretation ABG results: PT/INR, D-dimer PT 12.4 Seconds (9.4-12.1) H 01/13/17 13:25 - Impressions Impressions Echocardiogram 01/14/17 09:26 Impressions: LVEF 60%. Normal right ventricular structure and function. Sclerotic aortic valve. Unable to determine number of leaflets. Mild-moderate aortic regurgitation. Moderate aortic stenosis. Mild mitral regurgitation. Mild tricuspid regurgitation. Mild pulmonary hypertension. Left Ventricular Wall Motion: Rest Echo Findings The mid inferior lateral and basal inferior lateral reilly were not visualized. All other wall segments showed normal motion. Findings: Study Quality * Technically adequate exam. ECG Findings * Sinus bradycardia. Left Ventricle * LVEF 60%. * Basal sigmoid septum. * Normal LV size. * Indeterminate diastolic function - diastolic evaluation not performed. Right Ventricle * Normal right ventricular structure and function. Left Atrium * Severely dilated left atrium. Right Atrium * Mildly dilated right atrium. Aortic Valve * Sclerotic aortic valve. Unable to determine number of leaflets. * Mild-moderate aortic regurgitation. * Moderate aortic stenosis. PV 3.2m/s, MG 18 mmHg, DI 0.3, LORRI 1.1cm2 Mitral Valve * No mitral stenosis. * Mild mitral regurgitation. * Mildly sclerotic mitral valve leaflets. Tricuspid Valve * Mild tricuspid regurgitation. * Normal tricuspid valve structure. * Estimated RA pressure is 8 mmHg. * Estimated RVSP is 44 mmHg. * Mild pulmonary hypertension. Pulmonic Valve * Pulmonic valve is not well visualized. * No pulmonic stenosis. * Trace pulmonic regurgitation. Pulmonary Artery * Pulmonary artery not well visualized. Aorta * Normally sized aortic root. Pericardium * There is no pericardial effusion present. Interatrial Septum * No evidence of PFO by color Doppler. IVC * The IVC is dilated. * < 50% respiratory change. - Attending Attestation Please see discharge summary of this date.
[2017-01-15] MEDS ORDERED: Milk and Molasses Enema 200 ML RC SCH (09:00)
[2017-01-15] MEDS ORDERED: Regadenoson 0.4 MG/5 ML SYRINGE IVP ONE (09:01)
--- NOTE | 2017-01-15 09:13 | Cardiology Progress Note ---
Date of Encounter: 01/15/17 Time of Encounter: 09:08 Assessment and Plan (1) Atrial fibrillation with RVR Current Visit: Yes Status: Acute New A-Fib, EKG on admission HR 100, converted back to SR yesterday afternoon. HR low 50s SR at bedside. K 3.8, Mag 2.3, TSH 0.347--recommend addressing per primary team. Started Lopressor 25mg BID. Holding this AM due to HR. [id number] score is 4 (Age, HTN, CAD). Currently on heparin gtt. Discussed salvage determiner anticoagulation--Coumadin vs NOACs. Pt refuses Coumadin, states he will need to think about NOACs before agreeing. R/B/A discussed. Stool occult blood positive. H&H stable. Per pt, since having radiation for prostate cancer in the , he has had to take an enema every other day which sometimes causes some irritation/blood to be noted and has hx of hemorrhoids. Not a contraindication for anticoagulation. Echo pending. Stress test today for ischemic eval. Will determine fpc anticoagulation following stress test. Sleep study 10/2015 no evidence of QUIANA. (2) Chest pain Current Visit: Yes Status: Acute Chest pain intermittent since Thursday morning. Midsternal chest tightness with radiation to back. Concerning for unstable angina. Symptoms worse with exertion, improve with rest and nitro. Troponins 0.03, 0.06x2 in setting of A-Fib RVR, nondiagnostic for ACS. EKG with lateral ischemia. Per pt, symptoms similar to prior anginal equivalent. Also per pt, he thought he had an ID earlier this year, went to PCP office and EKG was noted to have changes, but he declined admission. Echo pending to evaluate structure and function. Recommend ischemic evaluation given concerning symptoms and EKG changes. Discussed stress test/C. Pt would prefer to have a stress test. Proceed with stress test today and will follow-up after results. Qualifiers: Chest pain type: unspecified Qualified Code(s): R07.9 - Chest pain, unspecified (3) CAD (coronary artery disease) Current Visit: Yes Status: Acute Hx of CAD and multiple PCI (per pt 7). Last LHC was 02/2012 when pt received PCI to prox-mid first obtuse marginal artery. Started ASA, Statin, BB. Plan as above. Qualifiers: Coronary Disease-Associated Artery/Lesion type: [place] artery [place] vs. transplanted heart: [place] heart Associated angina: with unstable angina Qualified Code(s): I25.110 - Atherosclerotic heart disease of [place] coronary artery with unstable angina pectoris (4) Elevated troponin Current Visit: Yes Status: Acute Borderline--0.03, then 0.06 x 2 in setting of A-Fib with RVR. Nondiagnostic for ACS. Cardiac rehab currently not warranted. Plan as above. Discussion w patient/family: The assessment and plan as outlined above was discussed with the patient and/or family members who expressed understanding and agreement. All questions were answered. Thank you for involving us in the care of your patient. Please call with any questions. I will discuss all the above with Dr. Perez and make changes as necessary. Subjective Principal diagnosis: Chest pain Interval history: Pt denies chest pain overnight. Echo pending. Pt converted to SR overnight. Objective Vital Signs, Last 4 Hours Temp Pulse Resp BP Pulse Ox 01/15/17 07:43 97.6 F 56 16 105/55 98 Vital Signs Temp Pulse Resp BP Pulse Ox 01/15/17 07:43 97.6 F 56 16 105/55 98 01/15/17 04:55 98.0 F 55 16 105/55 95 01/14/17 23:40 58 115/63 01/14/17 20:11 98.3 F 61 16 104/60 94 01/14/17 15:49 98.1 F 51 16 97/62 98 01/14/17 11:19 98.2 F 83 16 102/60 96 Intake and Output 01/14/17 01/15/17 01/15/17 23:59 07:59 15:59 Intake Total 490 / 490 0 / 0 Balance 490 / 490 0 / 0 Intake: IV Fluids 200 / 200 Heparin 25,000 UNIT/500 ML D5W 200 / 200 25,000 unit In 500 ml @ 14 UNIT /KG/HR 23.496 mls/hr IVC . [id number] [place] Rx#:[id number] Oral 290 / 290 0 / 0 Other: # Voids 1 0 Weight 89.5 kg Patient Weight 01/15/17 23:59 Weight 89.5 kg General: Conversant, No Apparent Distress HEENT: Atraumatic, Normocephaly, Mucus Membranes Moist Neck: No JVD, Normal carotid pulses Cardiac: Reg Rate and Rhythm, Normal S1 and S2, No Murmur Lungs: Normal Breath Sounds, No Wheeze, Rales, Rhonchi Neuro: Alert and responsive, No focal deficits noted Abdomen: Soft, Non-Tender Skin: No rashes noted on visualized skin Musculoskeletal: No Chest Wall Tenderness Extremities: No Clubbing, No Cyanosis, No Edema, Normal Pulses Results 01/14/17 04:12 01/15/17 03:49 Lab Results 01/14/17 01/15/17 09:37 03:49 APTT 67.3 H Sodium 140 Potassium 3.9 Chloride 108 Carbon Dioxide 26 BUN 21 Creatinine 0.99 Glucose 105 H Calcium 8.9 Magnesium 1.9 BMP 01/15/17 Range/Units 03:49 Sodium 140 (136-145) mEq/L Potassium 3.9 (3.5-4.5) mEq/L Chloride 108 (98-109) mEq/L Carbon Dioxide 26 (19-29) mEq/L BUN 21 (8-26) mg/dL Creatinine 0.99 (0.72-1.25) mg/dL Glucose 105 H (70-99) mg/dL Calcium 8.9 (8.6-10.8) mg/dL Active Medications Aspirin (Aspirin) 81 mg PO DAILY [place] Stop: 07/16/17 09:31 Last Admin: 01/14/17 10:42 Dose: 81 mg Atorvastatin Calcium (Lipitor) 40 mg PO HS [place] Stop: 07/16/17 21:01 Last Admin: 01/14/17 20:31 Dose: 40 mg Heparin Sodium (Porcine) (Heparin) 5,900 unit 70 unit/kg (5900 unit) IVP Q6HR PRN PRN Reason: SEE COMMENTS Stop: 07/15/17 14:31 Heparin Sodium (Porcine) (Heparin) 2,900 unit 35 unit/kg (2900 unit) IVP Q6H PRN PRN Reason: SEE COMMENTS Stop: 07/15/17 14:31 Heparin Sodium/Dextrose (Heparin 25,000 Unit/500 Ml D5w) 25,000 unit in 500 mls @ 23.496 mls/hr IVC .[id number] [place]; 14 UNIT/KG/HR PRN Reason: Protocol Stop: 07/15/17 14:31 Last Admin: 01/14/17 23:01 Dose: 10.96 unit/kg/hr, 18.4 mls/hr Isosorbide Mononitrate (Imdur) 30 mg PO DAILY [facility] Stop: 07/16/17 09:01 Last Admin: 01/14/17 09:05 Dose: 30 mg Metoprolol Tartrate (Lopressor) 25 mg PO BID [facility] Stop: 07/16/17 09:31 Last Admin: 01/14/17 20:31 Dose: 25 mg Multi-Ingredient GI Drug (Milk And Molasses Enema) 200 ml RC DAILY [facility] Stop: 07/17/17 09:01 Naloxone HCl (Narcan) 0.4 mg IVP Q2MIN PRN PRN Reason: Opioid Reversal Stop: 07/15/17 16:19 Nitroglycerin (Nitroglycerin) 0.4 mg SL Q5M PRN PRN Reason: chest pain/angina Stop: 07/15/17 16:31 Pantoprazole Sodium (Protonix) 40 mg IVP DAILY [facility] Stop: 07/16/17 09:31 Last Admin: 01/14/17 09:29 Dose: 40 mg Pharmacy Profile Note (Patient Taking Own Medication) 1 each NS DAILY [facility] Stop: 07/16/17 09:01 Last Admin: 01/14/17 09:37 Dose: Not Given - Imaging and Cardiology Echo: pending - EKG Interpretation EKG results cardiology: other (12 hr tele AVG HR 57, now SR.) Consult Discharge Plan - Plan Referrals: Christiano Shah DO [Primary Care Provider] - 01/22/17 11:30 am
--- NOTE | 2017-01-15 14:07 | Event Note ---
Date of Encounter: 01/15/17 Time of Encounter: 14:00 - Cardiology Event Note Non exercise nuclear tress test negative for ischemia. Echo: Impressions: LVEF 60%. Normal right ventricular structure and function. Sclerotic aortic valve. Unable to determine number of leaflets. Mild-moderate aortic regurgitation. Moderate aortic stenosis. Mild mitral regurgitation. Mild tricuspid regurgitation. Mild pulmonary hypertension. Laboratory Tests 01/13/17 01/13/17 01/14/17 13:25 14:14 00:42 Troponin I 0.06 H* TSH 0.347 L Stool Occult Blood Positive A Notes reviewed, hx of chronic occult stools and deemed a candidate for fdc AC. Patient agreeable. Normal kidney fxn. On Hep gtt. Xarelto franks check $ 184.05/month. Eliquis franks check pending. SB in the 50's, no afib recurrence. Discussed with Dr. Perez, will add Toprol XL 12.5mg PO daily, patient will keep HR and BP log and bring to f/u, Lopressor 25mg PO BID stopped. Will sign off-- once Anticoagulation recs determined; re-consult PRN, f/u scheduled.
--- NOTE | 2017-01-15 14:22 | Discharge Summary ---
<EvonFabio - Last Filed: 01/15/17 14:38> Date of Encounter: 01/15/17 Time of Encounter: 14:00 - Discharge Diagnosis (1) Atrial fibrillation with RVR Priority: Primary Status: Acute (2) CAD (coronary artery disease) Priority: Secondary Status: Chronic Qualifiers: Coronary Disease-Associated Artery/Lesion type: [place] artery [place] vs. transplanted heart: [place] heart Associated angina: with unstable angina Qualified Code(s): I25.110 - Atherosclerotic heart disease of [place] coronary artery with unstable angina pectoris (3) Elevated troponin Priority: Primary Status: Acute (4) Low TSH level Priority: Secondary Status: Ruled-out (5) HTN (hypertension) Priority: Secondary Status: Chronic Qualifiers: Hypertension type: essential hypertension Qualified Code(s): I10 - Essential (primary) hypertension - Discharge Medications Prescriptions: Apixaban [Eliquis] 5 mg PO BID #60 tablet Aspirin 81 mg PO DAILY #30 tab.chew Atorvastatin [Lipitor] 40 mg PO HS #30 tablet Metoprolol XL (24 HR) Succ [Toprol Xl] 12.5 mg PO DAILY #30 tab.er.24h Home Medications: Ipratropium Webb 1 spr NS DAILY 01/13/17 [History] Isosorbide MONOnitrate (24 HR) [Imdur] 30 mg PO DAILY 01/13/17 [History] Nitroglycerin [Nitrostat] 0.4 mg SL Q5M 01/13/17 [History] Pantoprazole Sodium [Protonix] 40 mg PO DAILY 01/13/17 [History] Apixaban [Eliquis] 5 mg PO BID #60 tablet 01/15/17 [Rx] Aspirin 81 mg PO DAILY #30 tab.chew 01/15/17 [Rx] Atorvastatin [Lipitor] 40 mg PO HS #30 tablet 01/15/17 [Rx] Metoprolol XL (24 HR) Succ [Toprol Xl] 12.5 mg PO DAILY #30 tab.er.24h 01/15/17 [Rx] Allergies/Adverse Reactions: 3 Allergy/AdvReac Type Severity Reaction Status Date / Time bicalutamide [From Casodex] Allergy See Verified 05/21/15 08:38 Comments lisinopril Allergy See Verified 05/21/15 08:38 Comments promethazine [From Phenergan] AdvReac Hypotension Verified 03/21/15 10:10 Procedures/tests Complete & Pending: Procedures Performed prior 72 hours Category Date Time Status NM tanya perf SPECT multi [NM] Routine Exams 01/15/17 08:34 Taken EV echocardiogram Routine Y 01/14/17 09:26 Completed SP pharm nuclear stress Routine Y 01/15/17 08:33 Completed Date of admission: 01/13/17 14:51 Primary care physician: Christiano Shah DO Consults: 01/13/17 16:59 Consult to Cardiology [CONS] Routine Comment: Consulting Provider: Cardiology Cece Reason for Consult: New a-fib Call Completed: No Discharging clinician: Fabio Barnard Anticipated date of discharge: 01/15/17 - Patient Status Disposition: Home, Self-Care Condition: Good Functional capacity at discharge: independent ambulation Overall status at discharge: patient is progressing back to baseline - Discharge Instructions Follow Up With: Shreyas Burr, TECHNICAL SUPPORT 1 SOFTWARE ENGINEER [Advanced Practice Nurse] - (office will call patient at home with appointment date and time) Christiano Shah DO [Primary Care Provider] - 01/22/17 11:30 am Additional Instructions: Please return to emergency room if return of chest pain or shortness of breath with exertion or feeling of fast heart rate causing dizziness, diaphoresis, or chest pain. Take all medications as prescribed including: Eliquis 5 mg twice a day Aspirin 81 mg daily Nitroglycerin 0.4 mg sublingual as needed for chest pain Imdur 30 mg daily Ipratropium 1 spray nasally daily Toprol 12.5 mg daily Pantoprazole 40 mg daily Follow-up with cardiology in 1-2 weeks Follow-up with your PCP in 1-2 weeks As IS a blood thinner, if there are any concerns with unusual bleeding or more bleeding than usual please stop taking the Eliquis and call your blood bank manager. - Diet and Activity Activity: resume usual activities as tolerated Diet: low fat, low cholesterol Interval History: Patient continues to well with no concerns/complaints at this time. Patient's pharmacy was called and he has elected to try a course of all Eliquis for long- term anticoagulation. Hospital course: Mr. Roth is a 76 year old gentleman with a prior medical history of COPD, prostate cancer, hyperlipidemia, hypertension, and CAD who had 7 stents placed in 2010. He presented to [facility] on 01/13/17 after having feeling of chest pain and dyspnea with exertion. During this time he felt his heart beating fast and irregular. He was found to be in atrial fibrillation with RVR at presentation and was placed on a heparin drip with rate control achieved with resting. He was found to have mildly elevated troponins and serial examination of 0.03, 0.06 , and finally 0.06. He had had 7 stents placed over the course of several weeks back in 2010, but had no cardiology follow-up since then. He reported resolution of his chest pain with control of his heart rate and rest. He was seen by cardiology in regards to his anginal symptoms and new atrial fibrillation. He underwent echocardiogram that revealed an EF of 60% with mild valvular regurgitation in his aortic, mitral, and bicuspid valves. He then underwent cardiac stress test that was negative for ischemia or infarct. Given patients elevated [id number] of 4 it is recommended patient have long-term anticoagulation after discussion with his pharmacy he has elected to try Eliquis. - Time Spent with Patient Total time spent providing and/or coordinating discharge services: Greater than 30 minutes - Constitutional Vitals: Temp Pulse Resp BP Pulse Ox 97.6 F 56 16 105/55 98 01/15/17 07:43 01/15/17 07:43 01/15/17 07:43 01/15/17 07:43 01/15/17 07:43 General appearance: Present: cooperative, A&O X 3, no acute distress, answers questions appropriately Exam: General: Cooperative, pleasant, no acute distress, alert and oriented 3, answers questions appropriately HEENT: Normocephalic, atraumatic, Conjunctiva pink, sclera anicteric Respiratory: No accessory muscle usage, clear to auscultation bilaterally, no wheezes/rhonchi/rales appreciated Cardiovascular: Bradycardia, S1 and S2 present, no murmurs/rubs/gallops/clicks appreciated Extremities: No calf tenderness, no pedal edema appreciated, warm, lower extremity pulses palpable and symmetrical Neurological: Alert and oriented 3, no facial droop, no focal deficits <Moy Tinsley - Last Filed: 01/15/17 17:41> Date of Encounter: 01/15/17 - Discharge Diagnosis (1) Atrial fibrillation Priority: Primary Status: Acute Qualifiers: Atrial fibrillation type: persistent Qualified Code(s): I48.1 - Persistent atrial fibrillation (2) CAD (coronary artery disease) Status: Chronic Qualifiers: Coronary Disease-Associated Artery/Lesion type: [place] artery [place] vs. transplanted heart: [place] heart Associated angina: with unstable angina Qualified Code(s): I25.110 - Atherosclerotic heart disease of [place] coronary artery with unstable angina pectoris (3) HTN (hypertension) Status: Chronic Qualifiers: Hypertension type: essential hypertension Qualified Code(s): I10 - Essential (primary) hypertension (4) Euthyroid sick syndrome Priority: Secondary Status: Chronic Procedures/tests Complete & Pending: Procedures Performed prior 72 hours Category Date Time Status NM tanya perf SPECT multi [NM] Routine Exams 01/15/17 08:34 Taken EV echocardiogram Routine Y 01/14/17 09:26 Completed SP pharm nuclear stress Routine Y 01/15/17 08:33 Completed Date of admission: 01/13/17 14:51 Primary care physician: Christiano Shah DO Consults: 01/13/17 16:59 Consult to Cardiology [CONS] Routine Comment: Consulting Provider: Cardiology Cece Reason for Consult: New a-fib Call Completed: No Hospital course: Mr. Roth is a 76 year old male - Time Spent with Patient Total time spent providing and/or coordinating discharge services: - Constitutional Vitals: Temp Pulse Resp BP Pulse Ox 97.6 F 56 16 105/55 98 01/15/17 07:43 01/15/17 07:43 01/15/17 07:43 01/15/17 07:43 01/15/17 07:43 - Attending Attestation I examined this patient and my medical decision-making was reviewed with the Resident Physician on 01/15/17. I agree with the documented findings, disposition and treatment plan as described except to the extent set forth below. Mr Roth has been admitted for atrial fib with RVR. He is now rate controlled. Stress test done today negative for ischemia. His vitals are stable and he is afebrile. He is ready for discharge home. Exam Alert. Comfortable Mucus membranes dry Heart irreg - not tachy No wheeze Plan D/C home today Follow up with PCP and card.
[2017-01-15] MEDS ORDERED: APIXABAN 5 MG TABLET PO SCH (14:30)
[2017-01-16] MEDS ORDERED: Metoprolol XL (24 HR) Succ 25 MG TAB.ER.24H PO SCH (09:00)
--- NOTE | 2017-01-16 19:02 | Electrocardiograph Report ---
[address] [address] Test Date: 2017-01-13 Pat Name: Tone Roth Department: 103 Room: 2NE30 Gender: M Ui Software Developer: MSC : [id number] Requested By: Francis Shah Order Number: [id number] Reading MD: Francis Peres Measurements Intervals [place] Rate: 100 P: [place]: 0 QRS: 8 QRSD: 94 T: 95 QT: 332 QTc: 389 Interpretive Statements ATRIAL FIBRILLATION WITH RAPID VENTRICULAR RESPONSE VOLTAGE CRITERIA FOR LVH POSSIBLE SEPTAL MYOCARDIAL INFARCTION MODERATE T-WAVE ABNORMALITY, CONSIDER LATERAL ISCHEMIA Electronically Signed On 01-16-2017 19:00:21 EDT by Francis Peres
== END 2017-01-15 18:10 | disposition home or self-care (01) ==
LOC: EMEROO 12:57 → 2NENU 12:57
PROVIDERS: ADMIT Hospitalist; ATTEND Internal Medicine

== ENCOUNTER 2017-07-08 17:14 | Inpatient (IN) ==
--- NOTE | 2017-07-08 17:36 | Emergency Department Note ---
Disposition Clinical Impression: Atrial fibrillation with rapid ventricular response STEMI (ST elevation myocardial infarction) Qualifiers: Involved coronary artery: unspecified coronary artery Qualified Code(s): I21.3 - ST elevation (STEMI) myocardial infarction of unspecified site Chest pain Qualifiers: Chest pain type: unspecified Qualified Code(s): R07.9 - Chest pain, unspecified Disposition: Admitted As Inpatient Condition: Fair Referrals: Christiano Shah DO [Primary Care Provider] - Forms: ED Satisfaction Letter Time of Disposition: 18:51 Chest Pain HPI - General Chief Complaint: ED Chest Pain Stated Complaint: chest pain Time Seen by Provider: 07/08/17 17:32 Source: patient Limitations: no limitations Vital Signs Reviewed: Yes Nursing Notes Reviewed: Yes - History of Present Illness HPI Narrative: 77-year-old male history of CAD s/p 7 stents and atrial fibrillation presents an emergency department chest pain. His initial EKG and triage revealed ST elevation in V1 and V2 that appear new. He has ST depressions as well in lateral leads. STEMI alert initiated. Patients complaining of chest pain that started this morning around 0 530. Worse with exertion and laying down. Appears more positional. He has taken his ASPIRIN today. It is similar to is pain in the past that required catheterization. Around 1500 he noted that he went into atrial fibrillation. He was recently diagnosed he states they were wanted to catheterize him but he refused. His auditor appraiser is Dr. Burger. Reports his last heart catheterization with stent placement was over 10 years ago. Pt complaint: chest pain Severity scale (1-10): 4 - Related Data Home Medications Medication Instructions Recorded Confirmed Pantoprazole Sodium [Protonix] 40 mg PO DAILY 01/13/17 07/08/17 Lactobacillus Acidophilus 1 mg PO DAILY 07/08/17 07/08/17 [Acidophilus Probiotic] Magnesium Oxide [Mgo] 400 mg PO BID 07/08/17 07/08/17 Mv-Mn/FA/Vit K/Lycop/Lut/Coq10 1 tab PO DAILY 07/08/17 07/08/17 [Daily Multivitamin Capsule] Previous Rx's Medication Instructions Recorded Aspirin 81 mg PO DAILY #30 tab.chew 01/15/17 Allergies Allergy/AdvReac Type Severity Reaction Status Date / Time bicalutamide [From Casodex] Allergy See Verified 07/08/17 19:02 Comments lisinopril Allergy See Verified 07/08/17 19:02 Comments promethazine [From Phenergan] AdvReac Hypotension Verified 07/08/17 19:02 All systems ED: reviewed and negative except as stated. Review of Systems: As Per HPI Constitutional: Denies: fever, chills ENT ED: Denies: congestion Cardiovascular: Reports: chest pain, palpitations, dyspnea on exertion Respiratory: Denies: cough, dyspnea Gastrointestinal: Denies: abdominal pain, nausea, vomiting Genitourinary: Denies: urgency, dysuria Musculoskeletal: Denies: back pain, neck pain Integumentary: Denies: rash, abrasion Neurological: Denies: headache Chest Pain PMH - Past Medical History Medical history: Reports: cancer, COPD, coronary artery disease, GERD, hyperlipidemia, hypertension Surgical history: Reports: angioplasty/stent, appendectomy, prostatectomy Psychiatric history: Reports: no psych history - Social History Smoking Status: Former smoker Alcohol use: Reports: none Drug use: Reports: none Physical Exam - General Limitations: no limitations General appearance: alert, in no apparent distress - Head Head exam: atraumatic, normocephalic, normal inspection - Eye Eye exam: Present: normal appearance, PERRL, EOMI - ENT ENT exam: normal exam, normal oropharynx, mucous membranes moist - Neck Neck exam: Present: normal inspection, full ROM, trachea midline - Chest Chest inspection: Present: normal inspection, symmetric chest wall rise - Respiratory Respiratory exam: Present: normal lung sounds bilaterally - Cardiovascular Cardiovascular exam: Present: tachycardia, irregular rhythm, normal heart sounds - Abdominal Exam Abdominal exam: Present: soft, Non-Tender, normal bowel sounds. Absent: tenderness, distention, guarding, rebound, rigidity - Extremities Exam Extremities exam: Present: normal inspection, full ROM, normal capillary refill. Absent: tenderness, pedal edema - Back Exam Back exam: Present: normal inspection, full ROM. Absent: tenderness - Neurological Exam Neurological exam: Present: alert, oriented X3 - Psychiatric Psychiatric exam: Present: normal affect, normal mood - Skin Skin exam: Present: warm, dry, intact, normal color. Absent: rash, cyanosis, diaphoresis Course - Reevaluation(s) Reevaluation #1: STEMI alert cancelled. Patient in the presence of family, ED attending Dr. Farris, heart cath team refuses emergent a heart catheterization at this time. Risk and benefits discussed with the patient. He is capable of making medical decision and continues to refuse heart catheterization and possible intervention. He understands this may result in permanent disability and possible . Family at bedside is agreeable. He states his had multiple stents up to 7 in his lifetime and would not want to have another. His last heart catheterization was over [address] Priest, auditor appraiser reviewed the EKG and states if patient changes his mind to inform him. At this time will continue with medical management. He denies any bloody stool, black tarry stool, hemoptysis or hematemesis. He has atrial fibrillation and states he takes aspirin. Review of his medication record shows eloquence but he denies taking that this time. He has been placed on low-dose heparin drip as well as and nitroglycerin drip for his pain. Will continue with medication management. Full chest pain workup initiated. Patient will require admission. Will attempt to control his atrial fibrillation at this time with metoprolol. Time: 17:49 - Consultations Consultation #1: Spoke with on-call hospitalist marina Marcial to admit to intensive care unit for STEMI, chest pain, atrial fibrillation c RVR. No further orders at this time. Patient is rate controlled after 5 mg Lopressor from initial 120 to 89. Time: 19:25 Vital Signs Temperature 97.9 F 07/08/17 17:16 Pulse Rate 96 07/08/17 17:16 Respiratory Rate 18 07/08/17 17:16 Blood Pressure 165/89 07/08/17 17:16 O2 Sat by Pulse Oximetry 97 07/08/17 17:16 Temperature 97.9 F 07/08/17 17:16 Pulse Rate 87 07/08/17 19:19 Respiratory Rate 15 07/08/17 19:19 Blood Pressure 95/71 07/08/17 19:19 O2 Sat by Pulse Oximetry 96 07/08/17 19:19 Oxygen Delivery Oxygen Delivery Room Air Chest Pain - MDM Narrative Medical decision making narrative: Patient was discussed with my attending physician who agrees with ED management and final disposition. They independently evaluated the patient. Please refer to their attestation to this encounter for additional information. This note was generated by [email or web address] voice recognition software and as a result grammatical or spelling errors may occur using this program. - Medical Records Medical records reviewed: Yes I reviewed the patient's medical records. - Lab Data Lab results reviewed: Yes I reviewed the patient's lab results. Result diagrams: 07/08/17 17:18 07/08/17 17:18 Lab Results 07/08/17 07/08/17 07/08/17 Range/Units 17:18 17:18 17:48 WBC 10.6 (4.3-11.1) K/mcL RBC 4.87 (4.19-5.50) M/mcL Hgb 15.4 (12.9-16.9) g/dL Hct 45.3 (37.5-50.1) % MCV 93.0 (83.0-100.0) fL MCH 31.6 (28.0-33.3) pg MCHC 34.0 (31.6-35.5) g/dL RDW 13.6 (11.5-14.5) % Plt Count 233 (140-400) K/mcL MPV 8.8 L (9.4-12.4) fL Immature Gran % 0.2 (0-4) % Seg Neutrophils % 62.4 % Lymphocytes % 24.9 % Monocytes % 9.8 % Eosinophils % 2.3 % Basophils % 0.4 % Neutrophils # 6.6 (1.6-8.9) K/mcL Lymphocytes # 2.6 (0.6-4.6) K/mcL Monocytes # 1.0 (0.0-1.3) K/mcL Eosinophils # 0.2 (0.0-0.6) K/mcL Basophils # 0.0 (0.0-0.2) K/mcL PT 11.3 (9.4-12.1) Seconds INR 1.1 APTT 26.3 (26.0-36.0) Seconds Sodium 141 (136-145) mEq/L Potassium 3.8 (3.5-5.1) mEq/L Chloride 104 (98-107) mEq/L Carbon Dioxide 30 H (23-29) mEq/L BUN 21 (8-23) mg/dL Creatinine 1.01 (0.70-1.30) mg/dL Est GFR ( Amer) > 60 (> 60) Est GFR (Non-Af Amer) > 60 (> 60) BUN/Creatinine Ratio 21 (6-26) Glucose 106 H (70-105) mg/dL Calculated Osmolality 295 (280-300) Calcium 10.0 (8.6-10.3) mg/dL Troponin I 0.03 (< 0.04) ng/mL - Radiology Data Radiology results reviewed: Yes I reviewed the patient's radiology results. Chest X-Ray 07/08/17 17:18 IMPRESSION: No acute findings. D/ / 07/08/2017 18:46:21 Naresh Chery MD / shawn Interpreting Provider: Naresh Chery MD - EKG Data EKG attestation: Yes I reviewed and interpreted this EKG. EKG results narrative: EKG performed 1721 atrial fibrillation with rapid ventricular response 127 beats per minute, ST elevation seen and AVR, V1, V2, V3 greater than 1 mm, there is also ST depression seen in the lateral leads V4 V5 V6 as well as lead to and AVF. These are significant findings compared to his prior EKG performed 01/13/2017. STEMI alert initiated. Heart Score - Score History: Moderately Suspicious EKG: Significant ST-Depression Age: Greater than 65 Risk Factors: Equal/Greater than 3 risk factor or history of atherosclerotic disease Troponin: Less than normal limit HEART Score Total: 7 Attestation Statement - Attestation Attestation: I, Isaías Farris DO, examined this patient [id number] and my medical decision-making was reviewed with Parish Kothari DO , Resident Physician. I agree with the documented findings, disposition and treatment plan as described except to the extent set forth below. Please see my progress notes for details.
[2017-07-08] MEDS ORDERED: *HR* Heparin 5,000 UNIT/ML VIAL IVP ONE ×2 (17:47→19:07)
[2017-07-08] MEDS ORDERED: *HR* Heparin 5,000 UNIT/ML VIAL IVP PRN ×3 (17:47→19:07)
[2017-07-08] MEDS ORDERED: *HR* Metoprolol 5 MG/5 ML VIAL IVP ONE (17:50)
[2017-07-08 17:52] LABS: Basophils % 0.4 %; Eosinophils # 0.2 K/mcL (0.0-0.6); Eosinophils % 2.3 %; Hematocrit 45.3 % (37.5-50.1); Hemoglobin 15.4 g/dL (12.9-16.9); Immature Granulocytes % 0.2 % (0-4); Lymphocytes # 2.6 K/mcL (0.6-4.6); Lymphocytes % 24.9 %; Mean Corpuscular Hemoglobin 31.6 pg (28.0-33.3); Mean Platelet Volume 8.8 fL (9.4-12.4); Monocytes % 9.8 %; Neutrophils # 6.6 K/mcL (1.6-8.9); Platelet Count 233 K/mcL (140-400); Red Blood Count 4.87 M/mcL (4.19-5.50); Red Cell Distribution Width 13.6 % (11.5-14.5); Segmented Neutrophils % 62.4 %
[2017-07-08] MEDS ORDERED: Nitroglycerin 25 MG/250 ML INFUS..BTL IVC SCH (18:00)
[2017-07-08] MEDS ORDERED: Heparin 25,000 UNIT/500 ML D5W 25,000 UNIT/500 ML BAG IVC SCH (18:00)
[2017-07-08 18:10] LABS: INR 1.1; Prothrombin Time 11.3 Seconds (9.4-12.1)
[2017-07-08 18:11] LABS: Troponin I 0.03 ng/mL (< 0.04)
[2017-07-08 18:13] LABS: BUN/Creatinine Ratio 21 (6-26); Blood Urea Nitrogen 21 mg/dL (8-23); Carbon Dioxide 30 mEq/L (23-29); Chloride 104 mEq/L (98-107); Glucose 106 mg/dL (70-105); Osmolality,Calculated 295 (280-300); Potassium 3.8 mEq/L (3.5-5.1); Sodium 141 mEq/L (136-145); eGFR For African Americans > 60 (> 60); eGFR For Non-African Americans > 60 (> 60)
[2017-07-08 18:13] LABS: Activated Partial Thrombo Time 26.3 Seconds (26.0-36.0)
--- NOTE | 2017-07-08 19:03 | Emergency Department Note ---
Disposition Clinical Impression: Atrial fibrillation with rapid ventricular response STEMI (ST elevation myocardial infarction) Qualifiers: Involved coronary artery: unspecified coronary artery Qualified Code(s): I21.3 - ST elevation (STEMI) myocardial infarction of unspecified site Chest pain Qualifiers: Chest pain type: unspecified Qualified Code(s): R07.9 - Chest pain, unspecified Disposition: Admitted As Inpatient Condition: Fair Referrals: Christiano Shah DO [Primary Care Provider] - Forms: ED Satisfaction Letter Time of Disposition: 19:11 General Adult HPI - General Chief complaint: ED Chest Pain Stated complaint: chest pain Time Seen by Provider: 07/08/17 17:32 Source: patient Limitations: no limitations - History of Present Illness Pain Scale: 4 - Related Data Home Medications Medication Instructions Recorded Confirmed Pantoprazole Sodium [Protonix] 40 mg PO DAILY 01/13/17 01/13/17 Lactobacillus Acidophilus 1 mg PO DAILY 07/08/17 07/08/17 [Acidophilus Probiotic] Magnesium Oxide [Mgo] 400 mg PO BID 07/08/17 07/08/17 Mv-Mn/FA/Vit K/Lycop/Lut/Coq10 1 tab PO DAILY 07/08/17 07/08/17 [Daily Multivitamin Capsule] Previous Rx's Medication Instructions Recorded Aspirin 81 mg PO DAILY #30 tab.chew 01/15/17 Allergies Allergy/AdvReac Type Severity Reaction Status Date / Time bicalutamide [From Casodex] Allergy See Verified 07/08/17 19:02 Comments lisinopril Allergy See Verified 07/08/17 19:02 Comments promethazine [From Phenergan] AdvReac Hypotension Verified 07/08/17 19:02 Constitutional: Denies: fever, chills ENT ED: Denies: congestion Cardiovascular: Reports: chest pain, palpitations, dyspnea on exertion Respiratory: Denies: cough, dyspnea Gastrointestinal: Denies: abdominal pain, nausea, vomiting Genitourinary: Denies: urgency, dysuria Musculoskeletal: Denies: back pain, neck pain Integumentary: Denies: rash, abrasion Neurological: Denies: headache Past Medical History - Past Medical History Medical history: Reports: cancer, COPD, coronary artery disease, GERD, hyperlipidemia, hypertension Surgical history: Reports: angioplasty/stent, appendectomy, prostatectomy Psychiatric history: Reports: no psych history - Social History Smoking Status: Former smoker Alcohol use: Reports: none Drug use: Reports: none Physical Exam - General Limitations: no limitations General appearance: alert, in no apparent distress Course Vital Signs Temperature 97.9 F 07/08/17 17:16 Pulse Rate 96 07/08/17 17:16 Respiratory Rate 18 07/08/17 17:16 Blood Pressure 165/89 07/08/17 17:16 O2 Sat by Pulse Oximetry 97 07/08/17 17:16 Temperature 97.9 F 07/08/17 17:16 Pulse Rate 90 07/08/17 18:49 Respiratory Rate 14 07/08/17 18:36 Blood Pressure 108/70 07/08/17 18:57 O2 Sat by Pulse Oximetry 95 07/08/17 18:49 Oxygen Delivery Oxygen Delivery Room Air Medical Decision Making - Lab Data Result diagrams: 07/08/17 17:18 07/08/17 17:18 Lab Results 07/08/17 07/08/17 07/08/17 Range/Units 17:18 17:18 17:48 WBC 10.6 (4.3-11.1) K/mcL RBC 4.87 (4.19-5.50) M/mcL Hgb 15.4 (12.9-16.9) g/dL Hct 45.3 (37.5-50.1) % MCV 93.0 (83.0-100.0) fL MCH 31.6 (28.0-33.3) pg MCHC 34.0 (31.6-35.5) g/dL RDW 13.6 (11.5-14.5) % Plt Count 233 (140-400) K/mcL MPV 8.8 L (9.4-12.4) fL Immature Gran % 0.2 (0-4) % Seg Neutrophils % 62.4 % Lymphocytes % 24.9 % Monocytes % 9.8 % Eosinophils % 2.3 % Basophils % 0.4 % Neutrophils # 6.6 (1.6-8.9) K/mcL Lymphocytes # 2.6 (0.6-4.6) K/mcL Monocytes # 1.0 (0.0-1.3) K/mcL Eosinophils # 0.2 (0.0-0.6) K/mcL Basophils # 0.0 (0.0-0.2) K/mcL PT 11.3 (9.4-12.1) Seconds INR 1.1 APTT 26.3 (26.0-36.0) Seconds Sodium 141 (136-145) mEq/L Potassium 3.8 (3.5-5.1) mEq/L Chloride 104 (98-107) mEq/L Carbon Dioxide 30 H (23-29) mEq/L BUN 21 (8-23) mg/dL Creatinine 1.01 (0.70-1.30) mg/dL Est GFR ( Amer) > 60 (> 60) Est GFR (Non-Af Amer) > 60 (> 60) BUN/Creatinine Ratio 21 (6-26) Glucose 106 H (70-105) mg/dL Calculated Osmolality 295 (280-300) Calcium 10.0 (8.6-10.3) mg/dL Troponin I 0.03 (< 0.04) ng/mL Attestation Statement - Attestation Attestation: I, Isaías Farris DO, examined this patient [id number] and my medical decision-making was reviewed with Parish Kothari DO , Resident Physician. I agree with the documented findings, disposition and treatment plan as described except to the extent set forth below. Please see my progress notes for details. 77-year-old male seen and examined at the time of arrival with resident physician. Patient had EKG was concerning for A. fib RVR as well as septal wall ST segment elevation myocardial infarction. Patient had elevations in leads V1 and V2 with significant depressions in leads 23 aVF as well as lateral precordial leads. After discussion with the patient the bedside does have a history of angina or the last several days. He does have a history of coronary artery disease. He has a history of 7 stents and is not taking any anticoagulation except for an aspirin. A STEMI alert was called immediately on Review of the EKG. Conversation was had with the patient about recommended intervention. The refrigerating engineer head Dr. Priest reviewed EKG and agreed with the recommendations. Patient on recommendation to go to the catheterization lab said that he does not want catheterization is at 7 stents in the past and does not want to have that performed again. The risks benefits alternatives as well as the recommendations were discussed at length. Patient does understand without this intervention patient could have significant myocardial disease or infarct causing potential . Patient does appear to have appropriate medical decision-making capacity. This information was discussed with the daughter as well as her by telephone. Dr. Allen at the bedside and understood all this. Patient also understands and agrees. He has ability to make appropriate medical decisions at this time. Patient will maximize medical intervention including heparin infusion as well as nitroglycerin drip and a single dose of metoprolol to help with his heart rate. Patient's heart rate was greater than 100. Patient will require admission for medical management and evaluation. The STEMI alert was canceled after the conversation was had in the medical decision-making process was completed. Patient is otherwise been clinically stable and understands his medical decision at this time. Disposition pending treatment course and evaluation. 45 minutes of critical care applied secondary to multidisciplinary intervention as well as medical management. See detailed documentation of the physical exam , medical intervention, medical decision-making and disposition in the resident physician's note 1900 Patient symptoms are resolving this point. Heart rate is down to 93. Patient has heparin as well as nitroglycerin infusing at this time. Patient will be discussed with the hospitalist for admission. Patient is still deferring on cardiac catheterization. Medical management will be maximized at this point disposition to be determined. Patient otherwise stable. Admission process to be completed at this time. Family again was informed and they are all in agreement with the patient's wishes and plan. Patient will be admitted for further evaluation and management.
[2017-07-08] MEDS: Heparin 25,000 UNIT/500 ML D5W 25,000 UNIT/500 ML BAG IVC SCH (19:14)
--- NOTE | 2017-07-08 20:20 | Internal Med History&Physical ---
Date of Encounter: 07/08/17 Time of Encounter: 20:30 Assessment and Plan (1) STEMI (ST elevation myocardial infarction) Current visit: Yes Status: Acute EKG with atrial fibrillation as well as ST elevations in leads V1 and V2 with reciprocal changes. Patient refused left heart catheterization. Patient placed on heparin drip. Continue to trend troponins every 6 hours. Continue daily aspirin. Continuous telemetry. Qualifiers: Involved coronary artery: unspecified coronary artery Qualified Code(s): I21.3 - ST elevation (STEMI) myocardial infarction of unspecified site (2) Atrial fibrillation with RVR Current visit: Yes Status: Acute Atrial fibrillation with rapid ventricular response. History of paroxysmal A. fib. Reports that he is not on the medications he was discharged with for A. fib. Given IV Lopressor in the emergency department with improved rate control. Continue IV Lopressor every 6 hours as needed. Continuous telemetry. (3) CAD (coronary artery disease) Current visit: No Status: Chronic Qualifiers: Coronary Disease-Associated Artery/Lesion type: [place] artery [place] vs. transplanted heart: [place] heart Associated angina: with unstable angina Qualified Code(s): I25.110 - Atherosclerotic heart disease of [place] coronary artery with unstable angina pectoris (4) HTN (hypertension) Current visit: No Status: Chronic IV Lopressor every 6 hours as needed. Qualifiers: Hypertension type: essential hypertension Qualified Code(s): I10 - Essential (primary) hypertension (5) DNR (do not resuscitate) Current visit: Yes Status: Acute I had a long shared decision making conversation with the patient was family present and bed 21 of the emergency department. During that time we discussed his CODE STATUS while he would be admitted to the hospital. The patient reports that he does not want any heroic measures including chest compressions, intubation, cardioversion or defibrillation, vasopressor support or antiarrhythmic medication administration. He reported to me that he just wanted to go comfortably if anything should happen to him. Family is at bedside who agreed with his wishes for DO NOT RESUSCITATE. The patient and family vocalized understanding that his CODE STATUS would be DNR CC meaning that there would be no medical intervention with the exception of making him comfortable, should he decompensate from his acute illness. Internal Medicine - H&P: HPI Chief complaint: Chest pain Admitted From: Emergency Dept Plans for Post Hospital Care: Home History of present illness: Mr. Roth is a 77 year old male with a past medical history of CAD, hypertension, paroxysmal atrial fibrillation who presented to the emergency department on 07/08/17 with a chief complaint of chest pain. Patient states he woke with symptoms at 5 AM this morning. States he has had the pain pretty much throughout the day waxing and waning in intensity. He reports that he felt nauseous during the day and also broke out into a sweat. His symptoms persisted into the afternoon which prompted him to come to the emergency department for evaluation. It appears that on arrival the patient was a STEMI alert and health information systems technician was contacted for emergent catheterization. The patient refused left heart catheterization at that time. He was subsequently started on a heparin drip. Nitroglycerin drip was held given absence of chest pain and hypotension. He was noted to be in A. fib RVR and given 5 mg of IV Lopressor. Emergency department workup reveals an EKG with atrial fibrillation with rapid ventricular response with a rate of 127. There are ST elevations in the anterior leads V1 and V2 as well as reciprocal changes in the limb leads. Chest x-ray unremarkable. Initial troponin negative. Patient seen and evaluated in the emergency department with family present. He localizes no new complaints at this time. I had a long sugar decision making conversation with the patient was family present in terms of his goals of care and wishes. He reports that he would not want anything done. I further inquired into this and he states that he would not want compressions, intubated, cardioverted or defibrillated, pressors started or antiarrhythmics. He states that if anything what happened to him that he would want to go peacefully. Family at bedside reports that they have come to terms with this and they might seem like a typical beliefs. They are comforted with his wishes. At that point I discussed with the patient that was DNR comfort care which he agreed with that being his status change. Past Med Surg Social Fam HX - Past Medical History Attestation: Yes The following information was validated with the patient. Source: patient Medical history: cancer, COPD, coronary artery disease, GERD, hyperlipidemia, hypertension Psychiatric history: no psych history - Past Surgical History Surgical History: angioplasty/stent, appendectomy, prostatectomy - Social History Smoking Status: Former smoker Alcohol use: none Drug use: none Internal Medicine - H&P: Meds Pantoprazole Sodium [Protonix] 40 mg PO DAILY 01/13/17 [History] Aspirin 81 mg PO DAILY #30 tab.chew 01/15/17 [Rx] Lactobacillus Acidophilus [Acidophilus Probiotic] 1 mg PO DAILY 07/08/17 [ History] Magnesium Oxide [Mgo] 400 mg PO BID 07/08/17 [History] Mv-Mn/FA/Vit K/Lycop/Lut/Coq10 [Daily Multivitamin Capsule] 1 tab PO DAILY 07/08 [History] 3 Allergy/AdvReac Type Severity Reaction Status Date / Time bicalutamide [From Casodex] Allergy See Verified 07/08/17 19:02 Comments lisinopril Allergy See Verified 07/08/17 19:02 Comments promethazine [From Phenergan] AdvReac Hypotension Verified 07/08/17 19:02 All Systems PM: A 10-system review of systems was performed and is negative for pertinent findings except as documented above in the HPI. - Constitutional Constitutional: as per HPI - EENT Eyes: as per HPI Ears: as per HPI Nose, mouth and throat: as per HPI - Breasts Breasts: as per HPI - Cardiovascular Cardiovascular ROS IM: as per HPI - Respiratory Respiratory: as per HPI - Gastrointestinal Gastrointestinal: as per HPI - Genitourinary Genitourinary ROS male: as per HPI - Musculoskeletal Musculoskeletal ROS IM: as per HPI - Integumentary Integumentary IM: as per HPI - Neurological Neurological ROS: as per HPI - Psychiatric Psychiatric: as per HPI - Endocrine Endocrine IM: as per HPI - Hematologic/Lymphatic Hematologic/Lymphatic: as per HPI - Allergic/Immunologic Allergic/Immunologic: as per HPI - Constitutional Vitals: Temp Pulse Resp BP Pulse Ox 97.9 F 96 15 132/109 95 07/08/17 17:16 07/08/17 20:03 07/08/17 20:03 07/08/17 20:03 07/08/17 20:03 General appearance: Present: pleasant, no acute distress, answers questions appropriately - Head Head exam: Present: atraumatic, normal inspection, normocephalic - Eye Eye exam: Present: normal appearance - Neck Neck exam general surgery: Present: normal inspection - Respiratory Respiratory exam: Present: CTAB - Cardiovascular Cardiovascular exam: Present: irregular rhythm, +S1, +S2, tachycardia - Extremities Exam Extremities exam: Present: full ROM, normal inspection - Neurological Exam Neurological exam: Present: alert, no focal deficits - Skin Skin exam: Present: dry, intact Internal Med - H&P Results - Labs CBC & Chem 7: 07/08/17 17:18 07/08/17 17:18 Labs: Short CBC 07/08/17 Range/Units 17:18 WBC 10.6 (4.3-11.1) K/mcL Hgb 15.4 (12.9-16.9) g/dL Hct 45.3 (37.5-50.1) % Plt Count 233 (140-400) K/mcL Neutrophils # 6.6 (1.6-8.9) K/mcL BMP 07/08/17 17:18 Sodium 141 Potassium 3.8 Chloride 104 Carbon Dioxide 30 H BUN 21 Creatinine 1.01 Glucose 106 H Calcium 10.0 Cardiac Enzymes 07/08/17 Range/Units 17:18 Troponin I 0.03 (< 0.04) ng/mL - Impressions ITS Impressions Chest X-Ray 07/08/17 17:18 IMPRESSION: No acute findings. D/ / 07/08/2017 18:46:21 Naresh Chery MD / [email or web address] Interpreting Provider: Naresh Chery MD
[2017-07-08] MEDS ORDERED: Naloxone 0.4 MG/ML INJ IVP PRN (20:21)
[2017-07-08] MEDS ORDERED: Acetaminophen 325 MG TABLET PO PRN (20:21)
[2017-07-08] MEDS ORDERED: *HR* Metoprolol 5 MG/5 ML VIAL IVP PRN (20:26)
[2017-07-09 05:21] LABS: Basophils % 0.7 %; Eosinophils # 0.3 K/mcL (0.0-0.6); Eosinophils % 4.7 %; Hematocrit 45.1 % (37.5-50.1); Hemoglobin 14.9 g/dL (12.9-16.9); Immature Granulocytes % 0.2 % (0-4); Lymphocytes # 2.2 K/mcL (0.6-4.6); Lymphocytes % 40.9 %; Mean Corpuscular Hemoglobin 31.5 pg (28.0-33.3); Mean Corpuscular Volume 95.3 fL (83.0-100.0); Mean Platelet Volume 9.3 fL (9.4-12.4); Monocytes # 0.4 K/mcL (0.0-1.3); Monocytes % 7.6 %; Neutrophils # 2.5 K/mcL (1.6-8.9); Platelet Count 223 K/mcL (140-400); Red Blood Count 4.73 M/mcL (4.19-5.50); Red Cell Distribution Width 13.7 % (11.5-14.5); Segmented Neutrophils % 45.9 %
[2017-07-09 05:29] LABS: BUN/Creatinine Ratio 20 (6-26); Blood Urea Nitrogen 18 mg/dL (8-23); Calcium 9.2 mg/dL (8.6-10.3); Carbon Dioxide 27 mEq/L (23-29); Chloride 108 mEq/L (98-107); Glucose 98 mg/dL (70-105); Osmolality,Calculated 294 (280-300); Potassium 3.6 mEq/L (3.5-5.1); Sodium 141 mEq/L (136-145); eGFR For African Americans > 60 (> 60); eGFR For Non-African Americans > 60 (> 60)
[2017-07-09] MEDS: *HR* Heparin 5,000 UNIT/ML VIAL IVP PRN (06:32)
[2017-07-09] MEDS: Multivit/Ca/Min/Fe/FA 1 TAB TABLET PO SCH (09:07)
[2017-07-09] MEDS: Aspirin 81 MG TAB.CHEW PO SCH (09:07)
--- NOTE | 2017-07-09 10:17 | Internal Med Progress Note ---
<Nadir Gregg - Last Filed: 07/09/17 10:11> Date of Encounter: 07/09/17 Time of Encounter: 10:17 - Assessment and plan (1) Atrial fibrillation with RVR Current Visit: Yes Status: Acute Assessment and plan: [id number] Score is 4; all plans as above (2) CAD (coronary artery disease) Current Visit: Yes Status: Chronic Assessment and plan: Hx of CAD and multiple PCI (per pt 7). Last C was 02/2012. Refuses consideration of any further PCI even given current STEMI. Qualifiers: Coronary Disease-Associated Artery/Lesion type: [place] artery [place] vs. transplanted heart: [place] heart Associated angina: with unstable angina Qualified Code(s): I25.110 - Atherosclerotic heart disease of [place] coronary artery with unstable angina pectoris (3) HTN (hypertension) Current Visit: No Status: Chronic Assessment and plan: Presently well-controlled; will continue to monitor. Qualifiers: Hypertension type: essential hypertension Qualified Code(s): I10 - Essential (primary) hypertension (4) DVT prophylaxis Current Visit: Yes Status: Acute Assessment and plan: Currently on heparin infusion and will likely be transitioning to another anticoagulant prior to discharge (5) STEMI (ST elevation myocardial infarction) Current Visit: Yes Status: Acute Assessment and plan: Symptom onset 07/08/17 at 0530, retrosternal, associated with nausea, diaphoresis , and lightheadedness. AF-RVR & V1-V2 ST-E + elevated troponins. -- Currently without any pain or signs of CHF -- Refuses PCI; was admitted on heparin infusion -- Still in A-fib with variable rate (70-130) and has received 1 dose of IV metoprolol 5mg; variably RVR -- Starting Cardizem drip titrating to rate of 85 bpm -- Cardiology consulted -- Cont on telemetry and heparin infusion -- Discharge meds to be reconsidered with cardiology input; advice is appreciated -- Previously on Atorvastatin, Toprol XL, and Eliquis Previous ECHO on 01/2017 LVEF 60%. Sclerotic aortic valve. Unable to determine number of leaflets. Mild-moderate aortic regurgitation. Moderate aortic stenosis. Mild mitral regurgitation. Mild tricuspid regurgitation. Mild pulmonary hypertension. Qualifiers: Involved coronary artery: unspecified coronary artery Qualified Code(s): I21.3 - ST elevation (STEMI) myocardial infarction of unspecified site - Time Spent With Patient Total time spent is greater than 50% in coordination of care (as documented) at patient's floor/unit and/or counseling patient: - Subjective Interval history: 77-year-old male admitted for medical management of STEMI as well as recurrent A -fib with RVR. Presented to the ED yesterday with chest pain that began around 0530 and was associated with noticeable heart palpitations that began around 1500. Pt states he knew he went into A-fib at that time prompting presentation to the ED. STEMI alert was called, but patient insisted on no interventional treatment of STEMI. Historically, has had one episode of A-fib RVR in January 2017 which has been normal sinus rhythm in the interim. From previous hospitalization, patient was discharged on atorvastatin, metoprolol, and Eliquis. Patient states took these medications for several weeks before discontinuing due to a generalized ache attributed to the metoprolol. Currently he only takes aspirin and Protonix. Patient states is no longer having any chest pain at all and feels at his baseline; palpates his pulses and is observant of rhythm irregularity. Pulse has been irregular and ranges between 70-130. Thoroughly revisited management of current condition. Pt maintains he is not interested in cath, but is willing to talk to cardiology. - Constitutional Vitals: Temp Pulse Resp BP Pulse Ox 98.1 F 73 15 115/74 96 07/09/17 06:49 07/09/17 06:49 07/09/17 06:49 07/09/17 06:49 07/09/17 06:49 CONSTITUTIONAL: Alert and oriented X3, well-nourished, well appearing, in no apparent distress HEAD: Normocephalic; atraumatic. EYES: PER, no scleral icterus, no drainage, no conjunctival injection NOSE: The nose is normal in appearance without rhinorrhea Oropharynx: pink/moist, no tonsillar edema/erythema/exudates RESP: NRD without use of accessory musculature, CTA b/l with no wheezes/rales/ rhonchi CARD: irregular rhythm with rate ranging between 70 - 130 beats per minute; without murmurs, rubs, or gallop SKIN: normal appearance, no pallor/diaphoresis,mottling,jaundice,cyanosis EXT: Rad pulses 2+ and symmetrical; no lateralizing edema; no other lesions seen PSYCH: appropriate mood/affect Internal Medicine: Result - Labs CBC & Chem 7: 07/09/17 04:00 07/09/17 04:00 Labs: Short CBC 07/09/17 Range/Units 04:00 WBC 5.4 (4.3-11.1) K/mcL Hgb 14.9 (12.9-16.9) g/dL Hct 45.1 (37.5-50.1) % Plt Count 223 (140-400) K/mcL Neutrophils # 2.5 (1.6-8.9) K/mcL BMP 07/09/17 04:00 Sodium 141 Potassium 3.6 Chloride 108 H Carbon Dioxide 27 BUN 18 Creatinine 0.90 Glucose 98 Calcium 9.2 Cardiac Enzymes 07/08/17 07/09/17 Range/Units 23:08 05:15 Troponin I 0.08 H* 0.06 H* (< 0.04) ng/mL - ABG Interpretation ABG results: PT/INR, D-dimer PT 11.3 Seconds (9.4-12.1) 07/08/17 17:48 Consult Discharge Plan - Plan Referrals: Christiano Shah DO [Primary Care Provider] - <Casey Gray H - Last Filed: 07/09/17 14:50> Date of Encounter: 07/09/17 - Assessment and plan (1) Atrial fibrillation with RVR Current Visit: Yes Status: Acute (2) HTN (hypertension) Current Visit: No Status: Chronic Qualifiers: Hypertension type: essential hypertension Qualified Code(s): I10 - Essential (primary) hypertension (3) DVT prophylaxis Current Visit: Yes Status: Acute (4) CAD (coronary artery disease) Current Visit: Yes Status: Chronic Qualifiers: Coronary Disease-Associated Artery/Lesion type: [place] artery [place] vs. transplanted heart: [place] heart Associated angina: with unstable angina Qualified Code(s): I25.110 - Atherosclerotic heart disease of [place] coronary artery with unstable angina pectoris (5) STEMI (ST elevation myocardial infarction) Current Visit: Yes Status: Acute Qualifiers: Involved coronary artery: unspecified coronary artery Qualified Code(s): I21.3 - ST elevation (STEMI) myocardial infarction of unspecified site - Time Spent With Patient Total time spent is greater than 50% in coordination of care (as documented) at patient's floor/unit and/or counseling patient: - Constitutional Vitals: Temp Pulse Resp BP Pulse Ox 98.7 F 88 15 119/79 95 07/09/17 11:16 07/09/17 11:16 07/09/17 11:16 07/09/17 11:16 07/09/17 11:16 Internal Medicine: Result - Labs CBC & Chem 7: 07/09/17 04:00 07/09/17 04:00 Labs: Short CBC 07/09/17 Range/Units 04:00 WBC 5.4 (4.3-11.1) K/mcL Hgb 14.9 (12.9-16.9) g/dL Hct 45.1 (37.5-50.1) % Plt Count 223 (140-400) K/mcL Neutrophils # 2.5 (1.6-8.9) K/mcL BMP 07/09/17 04:00 Sodium 141 Potassium 3.6 Chloride 108 H Carbon Dioxide 27 BUN 18 Creatinine 0.90 Glucose 98 Calcium 9.2 Cardiac Enzymes 07/08/17 07/09/17 Range/Units 23:08 05:15 Troponin I 0.08 H* 0.06 H* (< 0.04) ng/mL - ABG Interpretation ABG results: PT/INR, D-dimer PT 11.3 Seconds (9.4-12.1) 07/08/17 17:48 - Attending Attestation STEMI a fib RVR refusing cath, risks explained cardiology recommending heparin drip for 48h may resume Eliquis as outpatient I examined this patient and my medical decision-making was reviewed with the Resident Physician. I agree with the documented findings, disposition and treatment plan as described except to the extent set forth below.
[2017-07-09] MEDS: Metoprolol XL (24 HR) Succ 25 MG TAB.ER.24H PO SCH (11:42)
--- NOTE | 2017-07-09 12:12 | Cardiology Consult Note ---
<Annie Rendon - Last Filed: 07/09/17 12:14> Date of Encounter: 07/09/17 Time of Encounter: 12:10 Assessment and Plan (1) Atrial fibrillation with RVR Current Visit: Yes Status: Acute Patient rate controlled at this time. Stop cardizem drip and start patient's daily toprol 12.5mg. Would recommend anticoagulation at time of discharge but patient has been noncompliant with this in the past. (2) STEMI (ST elevation myocardial infarction) Current Visit: Yes Status: Acute Continue heparin for 48 hours of total therapy. Recommend left heart cath but patient refuses cath at this time. Patient DNRCC. We will order echo as well. Qualifiers: Involved coronary artery: unspecified coronary artery Qualified Code(s): I21.3 - ST elevation (STEMI) myocardial infarction of unspecified site Discussion w patient/family: The assessment and plan as outlined above was discussed with the patient and/or family members who expressed understanding and agreement. All questions were answered. Thank you for involving us in the care of your patient. Please call with any questions. History of Present Illness Consult date: 07/09/17 Consult reason: STEMI History of present illness: Mr. Roth is a 77 year old male past medical history of CAD, hypertension, paroxysmal atrial fibrillation who presented to the emergency department on 07/08 with a chief complaint of chest pain. Emergency department workup reveals an EKG with atrial fibrillation with rapid ventricular response with a rate of 127. There are ST elevations in the anterior leads V1 and V2 as well as reciprocal changes in the limb leads. Chest x-ray unremarkable. Initial troponin negative. Repeats elevated at .08 and .06. Patient refuses left heart cath at this time. Has history of afib but discontinued medications on his own and has been a loss to follow up. Patient also stopped his xarelto at home. Patient currently only taking aspirin. Patient denies any pain or palpitations at this time. Past Med Surg Social Fam HX - Past Medical History Attestation: Yes The following information was validated with the patient. Medical history: cancer, COPD, coronary artery disease, GERD, hyperlipidemia, hypertension Psychiatric history: no psych history - Past Surgical History Surgical History: angioplasty/stent, appendectomy, prostatectomy - Social History Smoking Status: Former smoker Alcohol use: none Drug use: none Medications and Allergies Pantoprazole Sodium [Protonix] 40 mg PO DAILY 01/13/17 [History] Aspirin 81 mg PO DAILY #30 tab.chew 01/15/17 [Rx] Lactobacillus Acidophilus [Acidophilus Probiotic] 1 mg PO DAILY 07/08/17 [ History] Magnesium Oxide [Mgo] 400 mg PO BID 07/08/17 [History] Mv-Mn/FA/Vit K/Lycop/Lut/Coq10 [Daily Multivitamin Capsule] 1 tab PO DAILY 07/08 [History] 3 Allergy/AdvReac Type Severity Reaction Status Date / Time bicalutamide [From Casodex] Allergy See Verified 07/08/17 19:02 Comments lisinopril Allergy See Verified 07/08/17 19:02 Comments promethazine [From Phenergan] AdvReac Hypotension Verified 07/08/17 19:02 All Systems Review: The remainder of the systems were reviewed and are negative - Constitutional Constitutional: no fever(s), no headache(s) - EENT Eyes: no blurred vision, no loss of vision - Cardiovascular Cardiovascular: as per HPI - Respiratory Respiratory: no cough, no dyspnea - Gastrointestinal Gastrointestinal: no abdominal pain, no hematemesis, no hematochezia - Musculoskeletal Musculoskeletal: arthralgias, no abnormal gait - Integumentary Integumentary: no rash - Neurological Neurological: no abnormal speech, no focal weakness Physical Examination Vital Signs, Last 4 Hours Temp Pulse Resp BP Pulse Ox 07/09/17 11:16 98.7 F 88 15 119/79 95 General: Conversant, No Apparent Distress HEENT: Atraumatic, Normocephaly, Mucus Membranes Moist Neck: No JVD, Normal carotid pulses Cardiac: Normal S1 and S2, No Murmur, Other (irregular rhythm, regular rate) Lungs: Normal Breath Sounds, No Wheeze, Rales, Rhonchi Neuro: Alert and responsive, No focal deficits noted Abdomen: Soft, Non-Tender Skin: No rashes noted on visualized skin Musculoskeletal: No Chest Wall Tenderness Extremities: No Clubbing, No Cyanosis, No Edema, Normal Pulses Results 07/09/17 04:00 07/09/17 04:00 Lab Results 07/08/17 07/09/17 07/09/17 23:08 04:00 04:00 WBC 5.4 Hgb 14.9 Hct 45.1 Plt Count 223 APTT Sodium 141 Potassium 3.6 Chloride 108 H Carbon Dioxide 27 BUN 18 Creatinine 0.90 Glucose 98 Calcium 9.2 Troponin I 0.08 H* 07/09/17 07/09/17 04:00 05:15 WBC Hgb Hct Plt Count APTT 57.9 H D Sodium Potassium Chloride Carbon Dioxide BUN Creatinine Glucose Calcium Troponin I 0.06 H* Consult Discharge Plan - Plan Referrals: Christiano Shah, [Primary Care Provider] - <Francis Peres - Last Filed: 07/10/17 11:29> Date of Encounter: 07/10/17 - Attending Attestation I examined this patient and my medical decision-making was reviewed with the Resident Physician. I agree with the documented findings, disposition and treatment plan as described except to the extent set forth below. Known CAD, AF. Presents with chest pain and EKG changes concerning for MD. He refused heart cath at that time, admitted he had been noncomplaint with meds. At this time would restart home meds and pursue agressive medical mgmt. per his request. Assessment and Plan Discussion w patient/family: The assessment and plan as outlined above was discussed with the patient and/or family members who expressed understanding and agreement. All questions were answered. Thank you for involving us in the care of your patient. Please call with any questions. History of Present Illness History of present illness: Mr. Roth is a 77 year old male All Systems Review: The remainder of the systems were reviewed and are negative Results 07/09/17 04:00 07/09/17 04:00 Lab Results 07/09/17 07/09/17 07/10/17 12:08 19:49 03:10 APTT 98.2 H D 74.8 H 101.5 H
[2017-07-09] MEDS: Heparin 25,000 UNIT/500 ML D5W 25,000 UNIT/500 ML BAG IVC SCH (19:55)
--- NOTE | 2017-07-10 08:32 | Internal Med Progress Note ---
<CristinoNadir - Last Filed: 07/10/17 08:25> Date of Encounter: 07/10/17 Time of Encounter: 08:25 - Assessment and plan (1) Atrial fibrillation with RVR Current Visit: Yes Status: Acute Assessment and plan: [id number] Score is 4; continues to be in afebrile will likely need to be discharged on rate control rx as well as anticoagulation (2) CAD (coronary artery disease) Current Visit: Yes Status: Chronic Assessment and plan: Hx of CAD and multiple PCI (per pt 7). Last C was 02/2012. All plans as above. Qualifiers: Coronary Disease-Associated Artery/Lesion type: [place] artery [place] vs. transplanted heart: [place] heart Associated angina: with unstable angina Qualified Code(s): I25.110 - Atherosclerotic heart disease of [place] coronary artery with unstable angina pectoris (3) HTN (hypertension) Current Visit: No Status: Chronic Assessment and plan: Presently well-controlled; will continue to monitor. Qualifiers: Hypertension type: essential hypertension Qualified Code(s): I10 - Essential (primary) hypertension (4) DVT prophylaxis Current Visit: Yes Status: Acute Assessment and plan: Currently on heparin infusion until 7 PM and will be transitioned to Eliquis at that time. (5) STEMI (ST elevation myocardial infarction) Current Visit: Yes Status: Acute Assessment and plan: Symptom onset 07/08/17 at 0530, retrosternal, associated with nausea, diaphoresis , and lightheadedness. AF-RVR & V1-V2 ST-E + elevated troponins. -- Currently without any pain or signs of CHF -- wishes to revisit further diagnostic workup with cardiology team -- still in a fit with rate in the 70s, continue Toprol-XL -- heparin infusion until 1900 on 07/10/17; transition to Eliquis at this point -- Discharge on Atorvastatin, Toprol XL, and Eliquis Previous ECHO on 01/2017 LVEF 60%. Sclerotic aortic valve. Unable to determine number of leaflets. Mild-moderate aortic regurgitation. Moderate aortic stenosis. Mild mitral regurgitation. Mild tricuspid regurgitation. Mild pulmonary hypertension. Qualifiers: Involved coronary artery: unspecified coronary artery Qualified Code(s): I21.3 - ST elevation (STEMI) myocardial infarction of unspecified site - Time Spent With Patient Total time spent is greater than 50% in coordination of care (as documented) at patient's floor/unit and/or counseling patient: - Subjective Interval history: Patient continues to be asymptomatic in denies any chest pains since prior exam. Patient is still in atrial fibrillation, but is rate controlled. Patient expresses desire to revisit further diagnostic evaluation with cardiology team. No other complaints or concerns. - Constitutional Vitals: Temp Pulse Resp BP Pulse Ox 97.7 F 63 16 125/85 97 07/10/17 07:00 07/10/17 07:00 07/10/17 07:00 07/10/17 07:00 07/10/17 07:00 CONSTITUTIONAL: Alert and oriented X3, well-nourished, well appearing, in no apparent distress EYES: PER, no scleral icterus, no drainage, no conjunctival injection RESP: NRD without use of accessory musculature, CTA b/l with no wheezes/rales/ rhonchi CARD: irregularly irregular rhythm with palpated pulse rate in the 70s, without murmurs, rubs, or gallop ABD: soft, non-tender SKIN: normal appearance, no pallor/diaphoresis,mottling,jaundice,cyanosis EXT: Rad pulses 2+ and symmetrical; no lateralizing edema; no other lesions seen PSYCH: appropriate mood/affect Internal Medicine: Result - Labs CBC & Chem 7: 07/09/17 04:00 07/09/17 04:00 - ABG Interpretation ABG results: PT/INR, D-dimer PT 11.3 Seconds (9.4-12.1) 07/08/17 17:48 Consult Discharge Plan - Plan Referrals: Christiano Shah DO [Primary Care Provider] - <Casey Gray - Last Filed: 07/10/17 12:46> Date of Encounter: 07/10/17 - Assessment and plan (1) Atrial fibrillation with RVR Current Visit: Yes Status: Acute (2) HTN (hypertension) Current Visit: No Status: Chronic Qualifiers: Hypertension type: essential hypertension Qualified Code(s): I10 - Essential (primary) hypertension (3) DVT prophylaxis Current Visit: Yes Status: Acute (4) CAD (coronary artery disease) Current Visit: Yes Status: Chronic Qualifiers: Coronary Disease-Associated Artery/Lesion type: [place] artery [place] vs. transplanted heart: [place] heart Associated angina: with unstable angina Qualified Code(s): I25.110 - Atherosclerotic heart disease of [place] coronary artery with unstable angina pectoris (5) STEMI (ST elevation myocardial infarction) Current Visit: Yes Status: Acute Qualifiers: Involved coronary artery: unspecified coronary artery Qualified Code(s): I21.3 - ST elevation (STEMI) myocardial infarction of unspecified site - Time Spent With Patient Total time spent is greater than 50% in coordination of care (as documented) at patient's floor/unit and/or counseling patient: - Constitutional Vitals: Temp Pulse Resp BP Pulse Ox 97.8 F 54 16 102/66 96 07/10/17 11:41 07/10/17 11:41 07/10/17 11:41 07/10/17 11:41 07/10/17 11:41 Internal Medicine: Result - Labs CBC & Chem 7: 07/09/17 04:00 07/09/17 04:00 - ABG Interpretation ABG results: PT/INR, D-dimer PT 11.3 Seconds (9.4-12.1) 07/08/17 17:48 - Attending Attestation STEMI a fib RVR stable on Toprol refusing cath initially, risks and benefits were explained in lenght, finally the patient agreed to have a cardiac cath but cardiology mentioned the cath would not be performed at the moment due to the patient's non compliance cardiology recommending heparin drip for 48h and then restart Eliquis may discharge in the morning I examined this patient and my medical decision-making was reviewed with the Resident Physician. I agree with the documented findings, disposition and treatment plan as described except to the extent set forth below.
[2017-07-10] MEDS: Multivit/Ca/Min/Fe/FA 1 TAB TABLET PO SCH (08:58)
[2017-07-10] MEDS: Aspirin 81 MG TAB.CHEW PO SCH (08:58)
[2017-07-10] MEDS: Metoprolol XL (24 HR) Succ 25 MG TAB.ER.24H PO SCH (08:58)
--- NOTE | 2017-07-10 09:38 | Cardiology Progress Note ---
Date of Encounter: 07/10/17 Time of Encounter: 09:37 Assessment and Plan (1) Atrial fibrillation with RVR Current Visit: Yes Status: Acute controlled at this time. Continue patient's daily toprol 12.5mg. Would recommend anticoagulation at time of discharge but patient has been noncompliant with this in the past. (2) STEMI (ST elevation myocardial infarction) Current Visit: Yes Status: Acute Continue heparin for 48 hours of total therapy. Add imdur, plavix, statin, and ARB. Patient has decided he would be interested in cath but at this time patient has been non-compliant with his medications and is not a candidate. We will restart patient's medications and follow up as an outpatient to determine his compliance. Add xarelto for outpatient anticoagulation. Qualifiers: Involved coronary artery: unspecified coronary artery Qualified Code(s): I21.3 - ST elevation (STEMI) myocardial infarction of unspecified site Discussion w patient/family: The assessment and plan as outlined above was discussed with the patient and/or family members who expressed understanding and agreement. All questions were answered. Thank you for involving us in the care of your patient. Please call with any questions. Subjective Principal diagnosis: Afib/NSTEMI Interval history: Patient states he is feeling well today. Denies chest pain/pressure or palpitations. Reconsidering cath at this time. Objective Vital Signs, Last 4 Hours Temp Pulse Resp BP Pulse Ox 07/10/17 07:00 97.7 F 63 16 125/85 97 General: Conversant, No Apparent Distress HEENT: Atraumatic, Normocephaly, Mucus Membranes Moist Neck: No JVD, Normal carotid pulses Cardiac: Reg Rate and Rhythm, Normal S1 and S2, No Murmur Lungs: Normal Breath Sounds, No Wheeze, Rales, Rhonchi Neuro: Alert and responsive, No focal deficits noted Abdomen: Soft, Non-Tender Skin: No rashes noted on visualized skin Musculoskeletal: No Chest Wall Tenderness Extremities: No Clubbing, No Cyanosis, No Edema, Normal Pulses Results 07/09/17 04:00 07/09/17 04:00 Lab Results 07/09/17 07/09/17 07/10/17 12:08 19:49 03:10 APTT 98.2 H D 74.8 H 101.5 H Consult Discharge Plan - Plan Referrals: Christiano Shah DO [Primary Care Provider] -
[2017-07-10] MEDS: Isosorbide MONOnitrate (24 HR) 30 MG TAB.ER.24H PO SCH (11:08)
[2017-07-10] MEDS: *HR* Heparin 5,000 UNIT/ML VIAL IVP PRN (18:22)
[2017-07-11 04:20] LABS: Basophils % 0.6 %; Eosinophils # 0.2 K/mcL (0.0-0.6); Eosinophils % 4.3 %; Hemoglobin 14.3 g/dL (12.9-16.9); Immature Granulocytes % 0.4 % (0-4); Lymphocytes # 0.8 K/mcL (0.6-4.6); Lymphocytes % 14.1 %; Mean Corpuscular HGB Conc 33.3 g/dL (31.6-35.5); Mean Corpuscular Hemoglobin 32.1 pg (28.0-33.3); Mean Corpuscular Volume 96.4 fL (83.0-100.0); Mean Platelet Volume 8.8 fL (9.4-12.4); Monocytes # 0.6 K/mcL (0.0-1.3); Monocytes % 10.4 %; Neutrophils # 3.7 K/mcL (1.6-8.9); Platelet Count 177 K/mcL (140-400); Red Blood Count 4.46 M/mcL (4.19-5.50); Red Cell Distribution Width 13.9 % (11.5-14.5); Segmented Neutrophils % 70.2 %
[2017-07-11 07:17] VITALS: BP 119/66
[2017-07-11] MEDS: Multivit/Ca/Min/Fe/FA 1 TAB TABLET PO SCH (08:41)
[2017-07-11] MEDS: Aspirin 81 MG TAB.CHEW PO SCH (08:41)
[2017-07-11] MEDS: Isosorbide MONOnitrate (24 HR) 30 MG TAB.ER.24H PO SCH (08:42)
--- NOTE | 2017-07-11 08:54 | Electrocardiograph Report ---
[place] [id number] Test Date: 2017-07-08 Pat Name: Tone Roth Department: 104 Room: 2NE19 Gender: M [employer] Scout: AM : 1940 Requested By: Isaías Farris Order Number: [id number] Reading MD: Miya Peres Measurements Intervals [place] Rate: 127 P: ID: 0 QRS: 26 QRSD: 98 T: 111 QT: 286 QTc: 361 Interpretive Statements ATRIAL FIBRILLATION WITH RAPID VENTRICULAR RESPONSE MODERATE VOLTAGE CRITERIA FOR LVH, CONSIDER NORMAL VARIANT POSSIBLE ANTEROSEPTAL MYOCARDIAL INFARCTION, PROBABLY OLD ST DEVIATION AND MODERATE T-WAVE ABNORMALITY, CONSIDER LATERAL ISCHEMIA Electronically Signed On 07-11-2017 8:52:52 EDT by Miya Peres
--- NOTE | 2017-07-11 09:30 | Discharge Summary ---
<Nadir Gregg - Last Filed: 07/11/17 10:06> - NOTES TO OUTPATIENT PROVIDER Notes to Outpatient Provider: Pt admitted for STEMI & 1st recurrence of AF-RVR. Declined PCI/LHC initially. Treated with 48 hrs of heparin infusion. Discussed LHC with cardiology who declines to do it at this point in time. He should follow up with cardiology within next 4 weeks. See discharge meds. Orders not resulted at time of discharge: Pending orders 07/12/17 04:00 CBC [Complete Blood Count] [HEME] AM 0400 07/13/17 04:00 CBC [Complete Blood Count] [HEME] AM 0400 Date of Encounter: 07/11/17 Time of Encounter: 09:25 - Discharge Diagnosis (1) Atrial fibrillation with RVR Priority: Primary Status: Acute (2) CAD (coronary artery disease) Priority: Primary Status: Chronic Assessment and Plan: Has converted to NSR, back to AF, and ultimately is NSR on discharge. Qualifiers: Coronary Disease-Associated Artery/Lesion type: ute artery [place] vs. transplanted heart: ute heart Associated angina: with unstable angina Qualified Code(s): I25.110 - Atherosclerotic heart disease of ute coronary artery with unstable angina pectoris (3) HTN (hypertension) Priority: Primary Status: Chronic Qualifiers: Hypertension type: essential hypertension Qualified Code(s): I10 - Essential (primary) hypertension (4) STEMI (ST elevation myocardial infarction) Priority: Primary Status: Suspected Assessment and Plan: Symptom onset 07/08/17 at 0530, retrosternal, associated with nausea, diaphoresis , and lightheadedness. AF-RVR & V1-V2 ST-E + mildly elevated troponins; varied interpretation of significance of EKG. Pt declined PCI and was treated with heparin infusion. -- Currently without any pain or signs of CHF -- Discharge on Atorvastatin, Toprol XL, and Eliquis Previous ECHO on 01/2017 LVEF 60%. Sclerotic aortic valve. Unable to determine number of leaflets. Mild-moderate aortic regurgitation. Moderate aortic stenosis. Mild mitral regurgitation. Mild tricuspid regurgitation. Mild pulmonary hypertension. Qualifiers: Involved coronary artery: unspecified coronary artery Qualified Code(s): I21.3 - ST elevation (STEMI) myocardial infarction of unspecified site Hospital course: Mr. Roth is a 77 year old male with significant history of CAD status post 7 stents was initially admitted for chest pain, suspected STEMI, and 1st recurrence of atrial fibrillation. On initial evaluation, patient did have an EKG with marginally significant ST segment changes in V1 and V2, and mildly elevated troponin levels. Initial chest x-ray was negative. Stimulant was activated, but patient declined any PCI at that time. Patient has since been treated with 48 hour course of heparin infusion. Cardiology is been on board. Patient has been rate controlled with Toprol-XL and other appropriate medications have been added on; patient does have history of nonadherence to medications that he understands the importance of adhering to make at this point. See discharge medications. Throughout course, patient continues to be without any recurrent symptoms such as chest pain or signs of CHF. Echo was completed and was not decisive in current course. See report. Patient will follow up with cardiology on an outpatient basis to determine any need for further diagnostic/interventional measures. Return precautions discussed with patient patient expresses understanding; return precautions are also mentioned in discharge instructions which will be handed patient prior to release. Discharged on all meds per cardio recommendation including ASA, Xarelto, Plavix , Troprol XL, Imdur, Lipitor, and Cozaar. - Time Spent with Patient Total time spent providing and/or coordinating discharge services: - Discharge Medications Prescriptions: Atorvastatin [Lipitor] 40 mg PO DAILY #30 tablet Clopidogrel [Plavix] 75 mg PO DAILY #30 tablet Isosorbide MONOnitrate (24 HR) [Imdur] 30 mg PO DAILY #30 tab.er.24h Losartan [Cozaar] 25 mg PO DAILY #30 tablet Metoprolol XL (24 HR) Succ [Toprol Xl] 12.5 mg PO DAILY #15 tab.er.24h Rivaroxaban [Xarelto] 20 mg PO 1700 #30 tablet Home Medications: Pantoprazole Sodium [Protonix] 40 mg PO DAILY 01/13/17 [History] Aspirin 81 mg PO DAILY #30 tab.chew 01/15/17 [Rx] Lactobacillus Acidophilus [Acidophilus Probiotic] 1 mg PO DAILY 07/08/17 [ History] Magnesium Oxide [Mgo] 400 mg PO BID 07/08/17 [History] Mv-Mn/FA/Vit K/Lycop/Lut/Coq10 [Daily Multivitamin Capsule] 1 tab PO DAILY 07/08 [History] Atorvastatin [Lipitor] 40 mg PO DAILY #30 tablet 07/11/17 [Rx] Clopidogrel [Plavix] 75 mg PO DAILY #30 tablet 07/11/17 [Rx] Isosorbide MONOnitrate (24 HR) [Imdur] 30 mg PO DAILY #30 tab.er.24h 07/11/17 [ Rx] Losartan [Cozaar] 25 mg PO DAILY #30 tablet 07/11/17 [Rx] Metoprolol XL (24 HR) Succ [Toprol Xl] 12.5 mg PO DAILY #15 tab.er.24h 07/11/17 [Rx] Rivaroxaban [Xarelto] 20 mg PO 1700 #30 tablet 07/11/17 [Rx] Allergies/Adverse Reactions: 3 Allergy/AdvReac Type Severity Reaction Status Date / Time bicalutamide [From Casodex] Allergy See Verified 07/08/17 19:02 Comments lisinopril Allergy See Verified 07/08/17 19:02 Comments promethazine [From Phenergan] AdvReac Hypotension Verified 07/08/17 19:02 Date of admission: 07/09/17 11:01 Primary care physician: Christiano Shah DO Discharging clinician: Nadir Gregg Anticipated date of discharge: 07/11/17 - Constitutional Vitals: Temp Pulse Resp BP Pulse Ox 97.7 F 53 15 119/66 97 07/11/17 07:14 07/11/17 07:14 07/11/17 07:14 07/11/17 07:14 07/11/17 07:14 CONSTITUTIONAL: Alert and oriented X3, well-nourished, well appearing, in no apparent distress EYES: PER, no scleral icterus, no drainage, no conjunctival injection RESP: NRD without use of accessory musculature, CTA b/l with no wheezes/rales/ rhonchi CARD: NSR on monitor, regular rhythm, palpated pulse rate in the 70s, without murmurs, rubs, or gallop ABD: soft, non-tender SKIN: normal appearance, no pallor/diaphoresis,mottling,jaundice,cyanosis EXT: Rad pulses 2+ and symmetrical; no lateralizing edema; no other lesions seen PSYCH: appropriate mood/affect - Patient Status Disposition: Home, Self-Care Condition: Fair Functional capacity at discharge: independent ambulation Overall status at discharge: patient is back to baseline - Discharge Instructions Instructions: Myocardial Infarction (DC), Atrial Fibrillation (DC) Follow Up With: [facility] [Provider Group] (3-4 weeks) Christiano Shah DO [Primary Care Provider] - (within next week) Additional Instructions: Please adhere to all prescribed medications she have any difficulty with adherence to these medications, please call your primary care provider or skip pitman see her primary care physician within the next 7 days follow-up with cardiology within the next 3 to 4 weeks [place] primary care physician if you have any new or recurrent symptoms such as we discussed: these include, but are not limited to, lightheadedness, diaphoresis, syncope, chest pain, palpitations, shortness of breath, nausea, vomiting, abdominal pain, or pedal edema. - Diet and Activity Activity: resume usual activities as tolerated Diet: low salt diet <Casey Gray - Last Filed: 07/11/17 10:38> Orders not resulted at time of discharge: Pending orders 07/12/17 04:00 CBC [Complete Blood Count] [HEME] AM 0400 07/13/17 04:00 CBC [Complete Blood Count] [HEME] AM 0400 Date of Encounter: 07/11/17 - Discharge Diagnosis (1) Atrial fibrillation with RVR Status: Acute (2) HTN (hypertension) Status: Chronic Qualifiers: Hypertension type: essential hypertension Qualified Code(s): I10 - Essential (primary) hypertension (3) CAD (coronary artery disease) Status: Chronic Qualifiers: Coronary Disease-Associated Artery/Lesion type: [place] artery [place] vs. transplanted heart: ute heart Associated angina: with unstable angina Qualified Code(s): I25.110 - Atherosclerotic heart disease of ute coronary artery with unstable angina pectoris (4) STEMI (ST elevation myocardial infarction) Status: Suspected Qualifiers: Involved coronary artery: unspecified coronary artery Qualified Code(s): I21.3 - ST elevation (STEMI) myocardial infarction of unspecified site Hospital course: Mr. Roth is a 77 year old male - Time Spent with Patient Total time spent providing and/or coordinating discharge services: Date of admission: 07/09/17 11:01 Primary care physician: Christiano Shah DO - Constitutional Vitals: Temp Pulse Resp BP Pulse Ox 97.7 F 53 15 119/66 97 07/11/17 07:14 07/11/17 07:14 07/11/17 07:14 07/11/17 07:14 07/11/17 07:14 - Attending Attestation STEMI noncompliant with meds in the past, cardiology recommended outpatient follow up to consider cath a fib RVR stable on Toprol refusing cath initially, risks and benefits were explained in lenght, finally the patient agreed to have a cardiac cath but cardiology mentioned the cath would not be performed at the moment due to the patient's non compliance cardiology recommended heparin drip for 48h and then restart Xarelto time spent: 40 min I examined this patient and my medical decision-making was reviewed with the Resident Physician. I agree with the documented findings, disposition and treatment plan as described except to the extent set forth below.
--- NOTE | 2017-07-11 13:29 | Event Note ---
Date of Encounter: 07/11/17 Time of Encounter: 13:27 - Cardiology Event Note Patient discharged prior to being seen by myself. ECGs reveiwed withn Dr.Jennifer Peres, patient was not a STEMI. No acute ST elevations noted, did not meet STEMI criteria. Troponins flat and adynamic. Was a.fib RVR on admission. TTE with LVEF preserved, no segmental wall motion abnormalities. Troponin elevated possibly due to ischemia. Cardiology will follow in outpateitn setting.
[2017-07-11] MEDS ORDERED: *HR* Rivaroxaban 10 MG TABLET PO SCH (17:00)
== END 2017-07-11 12:38 | disposition home or self-care (01) | DRG 282 ==
LOC: EMEROO 17:14 → OBSVTOIN 21:53 → 2NENU 21:53 → INTOOBSV 21:53 → 2NENU 22:10
PROVIDERS: ADMIT Internal Medicine Cardiovascular Disease; ATTEND Internal Medicine Cardiovascular Disease